=== PATIENT | male | born 1935 | race Caucasian/White ===

== ENCOUNTER → 2023-12-13 10:12 | Outpatient (REF) | payer MEDICARE, SELFPAY ==
[2023-12-13 11:48] LABS: % Eosinophils 3.3 % (0-6); % Immature Granulocytes 0.6 % (0-0.5); % Lymphocytes 21.7 % (20.5-51.1); % Monocytes 10.1 % (1.7-9.3); % Neutrophils 63.3 % (42.2-75.2); Absolute Basophils 0.1 10^3/uL (0-0.2); Absolute Eosinophils 0.3 10^3/uL (0-0.7); Absolute Immature Granulocytes 0.1 10^3/uL (0-0.05); Absolute Lymphocytes 1.7 10^3/uL (1.2-3.4); Absolute Monocytes 0.8 10^3/uL (0.1-0.6); Absolute Neutrophils 4.9 10^3/uL (1.4-6.5); Hematocrit 34.5 % (39.0-52.0); Hemoglobin 11.1 g/dL (13.0-18.0); Mean Corp Hgb Conc. 32.2 g/dL (33.0-37.0); Mean Corpuscular Hgb 27.7 pg (27.0-31.0); Mean Platelet Volume 11.3 fL (7.4-10.4); Nucleated Red Blood Cells % 0 % (-); Platelet Count 195 10^3/uL (130-400); Red Blood Cell Count 4.01 10^6/uL (4.70-6.10); Red Cell Dist. Width 14.4 % (11.5-14.5); White Blood Cell Count 7.8 10^3/uL (4.8-10.8)
[2023-12-13 11:59] LABS: ALT (SGPT) < 10 U/L (0-50); AST (SGOT) 17 U/L (17-59); Albumin 3.7 g/dl (3.5-5.0); Alkaline Phosphatase 80 U/L (38-126); Blood Urea Nitrogen 24 mg/dl (9-20); Calcium 9.5 mg/dl (8.4-10.2); Carbon Dioxide 27 mmol/L (22-30); Chloride 106 mmol/L (98-107); Glucose 91 mg/dl (70-99); Potassium 4.6 mmol/L (3.5-5.1); Sodium 142 mmol/L (135-145); Total Bilirubin 0.7 mg/dl (0.2-1.3); Total Protein 5.9 g/dl (6.3-8.2); eGFR 41.19
== END ==
LOC: OLABPATH 10:12
PROVIDERS: ATTENDING PHYSICIAN Internal Medicine
DX: R53.1 Weakness (principal)
CPT/HCPCS: 36415; 80053; 85025

== ENCOUNTER 2024-04-22 22:34 | Inpatient (IN) | payer OTHER, SELFPAY ==
[2024-04-22 20:31] VITALS: BP 128/61
[2024-04-22 20:45] LABS: % Basophils 0.7 % (0-2); % Eosinophils 2.1 % (0-6); % Immature Granulocytes 0.3 % (0-0.5); % Lymphocytes 17.2 % (20.5-51.1); % Monocytes 10.4 % (1.7-9.3); % Neutrophils 69.3 % (42.2-75.2); Absolute Basophils 0.1 10^3/uL (0-0.2); Absolute Eosinophils 0.2 10^3/uL (0-0.7); Absolute Lymphocytes 1.2 10^3/uL (1.2-3.4); Absolute Monocytes 0.7 10^3/uL (0.1-0.6); Absolute Neutrophils 4.9 10^3/uL (1.4-6.5); Hematocrit 22.4 % (39.0-52.0); Mean Corp Hgb Conc. 31.3 g/dL (33.0-37.0); Mean Corpuscular Hgb 24.1 pg (27.0-31.0); Mean Corpuscular Volume 77.2 fL (80.0-94.0); Mean Platelet Volume 9.4 fL (7.4-10.4); Nucleated Red Blood Cells % 0 % (-); Platelet Count 233 10^3/uL (130-400); Red Cell Dist. Width 16.1 % (11.5-14.5); White Blood Cell Count 7.1 10^3/uL (4.8-10.8)
[2024-04-22 21:00] VITALS: BP 127/66
[2024-04-22 21:09] LABS: Troponin I 0.016 ng/ml
[2024-04-22 21:10] LABS: ALT (SGPT) 13 U/L (0-50); AST (SGOT) 16 U/L (17-59); Albumin 3.7 g/dl (3.5-5.0); Alkaline Phosphatase 79 U/L (38-126); Blood Urea Nitrogen 39 mg/dl (9-20); Calcium 9.1 mg/dl (8.4-10.2); Carbon Dioxide 17 mmol/L (22-30); Chloride 107 mmol/L (98-107); Estimated Creatinine Clearance 31 ml/min; Glucose 116 mg/dl (70-99); Potassium 4.3 mmol/L (3.5-5.1); Sodium 139 mmol/L (135-145); Total Bilirubin 0.4 mg/dl (0.2-1.3); Total Protein 5.7 g/dl (6.3-8.2); eGFR 40.93
--- NOTE | 2024-04-22 21:17 | ED.GENMED ---
History of Present Illness
General
Chief Complaint: Chest Pain
Source: patient and family (son)
Exam Limitations: none
Time Seen by Provider: 04/22/24 21:11
Nursing documentation reviewed up to this point in time: agreed with
History of Present Illness
History of Present Illness:
The patient is an 89-year-old man who reports experiencing mild left-sided chest tightness around 2 PM today. Patient reports it is worse with exertion and better with rest. Currently it is extremely mild and nonradiating. His son is at the
bedside and reports that he also seems to be more short of breath with simple walking. Patient is on Xarelto for atrial fibrillation. Patient does report dark stools. Patient denies abdominal pain.
Past History
Past History
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
ED Past Surgical History: Cardiac (CABG, Mitral valve repair) and Other (Patient has had angioplasty x4, Ventral hernia)
Social History
Tobacco: Smoker
Alcohol: Daily ([place] one daily)
Drug: None
Personal:
Living: fdc
Employment: Retired
Family History
Family History: Hypertension
Review of Systems
Review of Systems
Allergies reviewed?: Yes
Other source history: family
All Other Systems: ROS reviewed and negative except as documented in HPI and ROS
Constitutional: Reports fatigue
EENT: Reports no symptoms
Respiratory: Reports trouble breathing
Cardiac: Reports chest pain
ABD/GI: Reports black stools
: Reports no symptoms
Musculoskeletal: Reports no symptoms
Skin: Reports no symptoms
Neurological: Reports no symptoms
Endocrine: Reports no symptoms
Hematologic/Lymphatic: Reports no symptoms
Psychiatric: Reports no symptoms
Phy Exam
Physical Exam
Physical Exam:
Physical Exam
General: Nontoxic, conversational
Neck: supple. no meningeal signs. normal psoterior pharynx
Heart: Irregular, bradycardic
Lungs: no acute respiratory distress. clear bilaterally
Abdomen: Soft and nontender throughout. Stool is dark on rectal exam and Hemoccult positive
Neuro: alert and oriented. no focal neurological deficits
Skin: no rash
Psychiatric: well kept. interactive and cooperative
Extremities: no edema. no calf tenderness. negative homans. good distal pulses
Scores
Heart Score for Chest Pain Patients
STEMI patient?: Not applicable
Course
Orders/Labs/Results
Orders:
Orders
04/22/24 20:27
Electrocardiogram (*1) Urgent
Reason for Study: Chest Pain
Cardiac Monitoring- Treatment ONCE
EKG- Treatment ONCE
IV Insert/Care/Rem.- Treatment PRN
O2 Therapy [RESP] Urgent
Titrate/Wean O2 to maintain O2 sat greater than (%): 90
Special Instructions: Maintain sats >/=90%
Pulse Ox/spot Check [RESP] Urgent
Quantity: 1
Special Instructions: ON ROOM AIR
04/22/24 20:37
Complete Blood Count/With Diff Urgent
Comprehensive Metabolic Panel Urgent
Troponin I Urgent
04/22/24 21:30
* Blood Bank Products Urgent
'stephanie Orders: [place]
Blood Bank Products: *Packed RBC Leuko(PRBC's)
Quantity: 2
Transfuse Today: Yes
Reason: Anemia
Patient will require pre-treatment for transfusion:: No
Type+Screen Urgent
IV Insert/Care/Rem.- Treatment PRN
04/22/24 21:34
Morphine Sulfate 2 mg IV NOW STA
Abnormal Lab Results
04/22/24
20:37
RBC 2.90 L 10^6/uL
(4.70-6.10)
Hgb 7.0 L g/dL
(13.0-18.0)
Hct 22.4 L %
(39.0-52.0)
MCV 77.2 L fL
(80.0-94.0)
MCH 24.1 L pg
(27.0-31.0)
MCHC 31.3 L g/dL
(33.0-37.0)
RDW 16.1 H %
(11.5-14.5)
Absolute Monos (auto) 0.7 H 10^3/uL
(0.1-0.6)
Lymphocytes % 17.2 L %
(20.5-51.1)
Monocytes % 10.4 H %
(1.7-9.3)
Carbon Dioxide 17 L mmol/L
(22-30)
BUN 39 H mg/dl
(9-20)
Creatinine 1.6 H mg/dL
(0.7-1.3)
Glucose 116 H mg/dl
(70-99)
AST 16 L U/L
(17-59)
Total Protein 5.7 L g/dl
(6.3-8.2)
04/22/24 20:37
04/22/24 20:37
Vital Signs
Initial and Last Documented VS:
Initial Vital Signs
Temp Pulse Resp BP Pulse Ox
98.2 F 67 16 128/61 99
04/22/24 20:31 04/22/24 20:31 04/22/24 20:31 04/22/24 20:31 04/22/24 20:31
Last Documented Vital Signs
Temp Pulse Resp BP Pulse Ox
98.2 F 67 16 128/61 99
04/22/24 20:31 04/22/24 20:31 04/22/24 20:31 04/22/24 20:31 04/22/24 20:31
MDM/Problems Addressed
Differential Diagnosis Includes:
Symptomatic anemia, acute coronary syndrome, acute dehydration
MDM/Problems Addressed:
Patient presents with acute chest pain and shortness of breath
Chronic conditions affecting care: CAD and Arrhythmia
Acute Exacerbation and/or Progression of Chronic Illness:
Patient may have acute exacerbation of chronic coronary artery disease, especially given a setting of acute anemia
Acute Exacerbation and/or Progression of Chronic Illness: CAD
*Pulse Oximetry
Patient hypoxic: no
*EKG
Interpreted by ED Provider?: Yes
Interpretation: abnormal
Comparison EKG: changes noted
Rate: bradycardiac
Rhythm: a-fib
[place]: right axis deviation
Interval: normal interval
QRS Pattern: left bundle branch block
Ischemia: non-specific ST changes
*Obstetrics And Gynecology Professor Interpretation
Rate: bradycardiac
Interpretation: abnormal
Rhythm: a-fib
*Critical Care Note
Total Time (30-74mins, 75-104mins- exclusive of procedures): 35 minutes
comment:
35 minutes of critical care given to patient including counseling patient and his son about importance of blood transfusion and symptomatic anemia, reviewing his prior blood work, and discussing case with hospitalist
Data Reviewed
Review of Other/Old Records Reveals: Labs (Hemoglobin 11.1 in November 2023)
Source: patient
Patient Management
Social determinants of health affecting care: Living situation and Strong social support
Discussion with other providers: Hospitalist
Escalation/DeEscalation of care consider admission/obs:
Patient understands risk and benefits of blood transfusion. Patient will be admitted for chest pain and symptomatic anemia. Concerns for possible upper GI bleed
ED Attending Note
-
Portions of this chart may have been created with voice recognition software.� Occasional wrong word or��sound alike� substitutions may have occurred due to the inherent limitations of voice recognition software.
Discharge Plan
Departure
Patient Disposition: Admit
Date of Disposition: 04/22/24
Time of Disposition: 21:31
Admit to: Med/Surg and Telemetry
Presentation/result/management discussed w/ accepting MD/DO: Hospitalist
Patient with high blood pressure during this ER visit?: Yes
Condition: Fair
Covid-19: Not Applicable
Discharge Problem:
Signs and symptoms of anemia, Acute blood loss anemia, Acute chest pain, Acute upper gastrointestinal bleeding
Prescriptions:
No Action
tamsulosin 0.4 MG capsule
0.4 mg PO BID
atorvastatin 40 MG tablet
40 mg PO QPM
acetaminophen [Tylenol Extra Strength] 500 MG tablet
1,000 mg PO QPM
nystatin [Nyamyc] 60 GM powder
1 applic topical PRN PRN (Reason: skin irritation)
fluticasone propionate 1 SPRAY spray,suspension
1 spray intranasal DAILY
Soothe Lubricant Eye Drops
1 drp BOTH EYES DAILY
polyethylene glycol 3350 17 GRAMS powder in packet
17 grams PO BID 30 Days Qty: 60 0RF
tramadol 50 mg Tablet
50 mg PO Q6H PRN (Reason: mod pain 4-6)
omeprazole 20 mg Capsule,Delayed Release(Dr/Ec)
20 mg PO DAILY
Xarelto 20 mg Tablet
20 mg PO QPM
duloxetine 20 mg Capsule, Delayed Rel Sprinkle
20 mg PO DAILY
diltiazem HCl 240 MG capsule,extended release 24hr
360 mg PO DAILY
cefdinir 300 mg capsule
300 mg PO BID Qty: 14 0RF
lidocaine 4 % adhesive patch,medicated
1 patch topical DAILY PRN (Reason: pain) Qty: 10 0RF
Referrals:
Jose Tavarez DO [Family Provider] -
Interventions
Interventions:
*Risk Screen - Suicide Last Done: 04/22/24 20:31
*General Assessment Last Done: 04/22/24 20:31
*Neglect/Abuse Screening Last Done: 04/22/24 20:31
ED- Cardiac Assessment Last Done: 04/22/24 20:41
Discharge Date and Time
Print Language: SOMALI
[2024-04-22 22:00] VITALS: BP 129/57
--- NOTE | 2024-04-22 22:09 | HPS.HSE ---
Addendum entered and electronically signed by Abel Agosto DO 04/22/24 22:47:
Patient seen and examined independently. Agree with findings and plan as set forth by Sofia Clements PA-C.
Patient is an 89y M with PMH significant for A-Fib, multiple prior TIAs, ASCVD and dementia who presents to ED for evaluation of chest discomfort and SOB. Pateint was at lunch with his son who noted that he seemed to be breathing very heavily.
Patent complained of some SOB this afternoon and was sent to the ED for evaluation. On evaluation in the ED, patient is noted to have Hgb = 7 compared to known baseline of 11-13. Patient denies any obvious blood loss including hematemesis,
epistaxis or hematochezia. He does reports some 'dark' colored stool.
Ass:
Acute Symptomatic Anemia - Presumed due to blood loss
Melena / Heme Positive Stool
Chest Pain / SOB secondary to the above
ASCVD
Paroxysmal Atrial Fibrillation with Multiple Prior TIAs
CKD III
BPH
Senile Dementia
Plan:
Admit for further evaluation and treatment.
Transfuse PRBCs for symptomatic anemia.
Hold Xarelto acutely.
IV PPI BID.
GI evaluation - probable endoscopic examination.
Follow H&H and provide additional PRBCs if needed.
Original Note:
Family Physician
-
Family Physician: Jose Tavarez
Chief Complaint
-
Chest Pain and Shortness of Breath
History of Present Illness
Patient is an 89 y/o male past medical history of A-fib on Xarelto, CAD s/p CABG, CVA and Dementia who presents with chest pain and shortness of breath. Patient is a limited historian. He notes some left sided chest pain that started today. He
also noted some shortness of breath. His son at the bedside took him out to lunch today and noted that he appeared much more short of breath than usual. Work-up in the emergency department revealed a drop in Hgb from 11 in November to 7 today. Patient
is unsure about any dark/black/bloody stools, but was found to have black heme-positive for ED provider.
Medical History
Past Medical History
Past Medical History: Reports Other
Additional Past Medical History:
Coronary Artery Disease
CVA
Paroxysmal Atrial Fibrillation
Essential Hypertension
Hyperlipidemia
CKD Stage III
Dementia
BPH
Past Surgical History: Reports Other
Additional Past Surgical History:
CABG
Mitral Valve Repair
Ventral Hernia Repair
Social History
Tobacco: Former Smoker
Alcohol: Occasional
Living: Assisted Living ([facility])
Family History
Family History: Not pertinent
Allergies / Home Medications
Allergies reflects when Allergies were last updated in [employer].
Home Medications with original date entered in [employer]
Allergy/Medication List:
Allergies
Allergy/AdvReac Type Severity Reaction Status Date / Time
No Known Allergies Allergy Verified 04/22/24 20:27
Home Medications
tamsulosin 0.4 mg capsule 0.4 mg PO BID Urinary issue 06/16/17
atorvastatin 40 mg tablet 40 mg PO QPM High cholesterol 11/12/17
acetaminophen 500 mg tablet (Tylenol Extra Strength) 1,000 mg PO QPM 08/16/19
Soothe Lubricant Eye Drops 1 drp BOTH EYES DAILY Eye condition 04/07/21
fluticasone propionate 50 mcg/actuation nasal spray,suspension 1 spray intranasal DAILY Allergies 04/07/21
nystatin 100,000 unit/gram topical powder (Nyamyc) 1 applic topical PRN PRN skin irritation 04/07/21
diltiazem HCl 240 mg capsule,extended release 24 hr 360 mg PO DAILY 03/01/22
duloxetine 20 mg capsule,delayed release sprinkle 20 mg PO DAILY 03/01/22
omeprazole 20 mg capsule,delayed release 20 mg PO DAILY 03/01/22
rivaroxaban 20 mg tablet (Xarelto) 20 mg PO QPM 03/01/22
Review of Systems
-
A 12 point ROS was completed and negative except as noted: Yes
Constitutional: Denies Fever or Chills
Respiratory: Reports Trouble Breathing; Denies Cough
Cardiac: Reports Chest Pain; Denies Palpitations or Syncope
Physical Exam
Vital Signs
Vital Signs
Temp Pulse Resp BP Pulse Ox
98.2 F 67 16 128/61 99
04/22/24 20:31 04/22/24 20:31 04/22/24 20:31 04/22/24 20:31 04/22/24 20:31
Physical Exam
General: Comfortable and Conversant
HEENT: Anicteric and Moist mucous membranes
Respiratory: Clear and Non Labored Respirations
Cardiac: S1/S2 and Irregular Rhythm; No Tachycardia
GI: Soft and Non Tender
Rectal: Black and Hem Positive (Per ED provider)
Musculoskeletal: No Clubbing, No Cyanosis and No Edema
Skin: Warm and Dry
Neuro: Awake, Alert and Nonfocal/grossly intact
Psych: Calm
Laboratory Results
-
04/22/24 20:37
04/22/24 20:37
Laboratory Results
Total Bilirubin 0.4 mg/dl (0.2-1.3) 04/22/24 20:37
AST 16 U/L (17-59) L 04/22/24 20:37
ALT 13 U/L (0-50) 04/22/24 20:37
Alkaline Phosphatase 79 U/L (38-126) 04/22/24 20:37
Troponin I 0.016 ng/ml 04/22/24 20:37
Data Reviewed
-
Lab Data: Labs Reviewed by me
Impression/Plan
-
Symptomatic Blood Loss Anemia
-Transfuse 2 units PRBCs
-Recheck in AM following transfusion
-Check iron studies
GI Bleed, likely upper in nature
-Consult GI
-Allow clear liquids
-Continue Protonix IV BID
Paroxysmal Atrial Fibrillation
-Continue diltiazem
-Xarelto on hold in setting of symptomatic anemia - Consider bridge therapy given history of multiple TIAs/CVA
-Consult Cardiology
CKD Stage III
-Creatinine at baseline
Dementia
-Monitor for mood/behavior changes during hospitalization
BPH
-Continue tamsulosin
Hx Coronary Artery Disease s/p CABG
Hx CVA
DVT Proph: SCDs
Code Status: DNR
[2024-04-22 22:41] LABS: Iron 27 ug/dl (49-181)
[2024-04-22 22:50] LABS: Percent Saturation 8 % (20-50); Total Iron Binding Capacity 326 ug/dl (261-462)
[2024-04-22 23:00] VITALS: BP 131/58
[2024-04-22 23:26] LABS: Ferritin 9.4 ng/ml (17.9-464.0)
[2024-04-22 23:54] VITALS: BP 122/67
[2024-04-22 23:58] LABS: Folate > 20.0 ng/ml (2.76-20); Vitamin B12 604 pg/ml (239-931)
[2024-04-23] VITALS (9 sets, daily range): BP systolic 118–168; BP diastolic 66–84; BMI 22.3
--- NOTE | 2024-04-23 00:33 | PTCARENOTE ---
Patient arrived from the ED via stretcher at approximately 0000. Patient stood and pivoted from stretcher to bed x1 assist. Patient AAOx2, [place]. VSS as documented. Assessment as documented. Patient oriented to room. Bed in lowest position. Bed alarm
in place for patient safety. Call aiken within reach.
[2024-04-23] MEDS: LASIX 20 MG IV (04:04)
[2024-04-23] MEDS: DUONEB 3 ML INH (04:06)
--- NOTE | 2024-04-23 04:32 | PTCARENOTE ---
After patient's first unit of PRBCs, patient's POX 87-91% on room air. Patient reports his shortness of breath has remained the same since admission. Patient placed on 2L NC and POX recovered to 94-97%. SWEATBAND PERFORATOR notified. Respiratory notified. One time
dose of IV Lasix ordered and given - see MAR. [place] given. Per SWEATBAND PERFORATOR, okay to give 2nd unit of PRBCs at a slow rate over 4 hours.
--- NOTE | 2024-04-23 06:55 | CON.GI ---
Addendum entered and electronically signed by Ritesh Mg DO 04/23/24 11:40:
I saw and examined the patient.
The WOOD PATTERN MAKER's note was reviewed and I agree with the note.
Comment: Mr. Oliva is an 89 y.o male with extensive past medical history as detailed below notable for prior MVR, hx of CAD s/p CABG, multiple TIAs, CKD, adenomatous colon polyps, and chronic dementia who presented to the ED with symptomatic anemia
found to have Hgb 7 and dark heme (+) stool. Concern for occult GI bleed resulting in his presentation and significant drop in Hgb from 13 (11/2023) now 7s here on admission without any overt GI blood loss. History significant for colon polyps (both
adenomatous and benign) during his previous colonoscopies, no prior EGD. Suspicious for AVMs resulting in occult GI blood loss, although malignancy cannot be excluded. Favor bi-directional endoscopic evaluation particularly if patient is to be
restarted on his xarelto given his known A Fib and multiple prior TIAs. Otherwise, patient remains HD-stable s/p 2 uPRBCs without signs of active GI bleeding although still significantly SOB at bedside this AM.
Recommendations:
- CLD only
- Trend Hgb with serial CBC, transfuse for goal Hgb > 8.0 given his cardiac history
- Empiric PPI 40 mg BiD
- Okay to start IV heparin gtt from GI standpoint while holding xarelto as without overt GI blood loss
- Discussed with patient's son at length this AM, amenable to pursuing EGD/Colonoscopy this admission
- Once patient is medically optimized from both a cardiopulmonary standpoint, will start bowel prep this admission
- Plan for EGD/Colonoscopy later this week ( or Monday)
- Cardiology consulted, appreciate recs
GI team will continue to follow while inpatient.
Original Note:
Consultation
-
Date/Time Consultation Requested: 04/22/24 [id number]
Date/Time Consultation Performed: 04/23/24 [id number]
Requesting Provider: Sofia Clements PA-C
Performing Provider: ARIANA Welch Bryan Stone
Reason for Consultation: anemia
Medical History
Chief Complaint / HPI
Chief Complaint: shortness of breath
History of Present Illness:
Pt is an 89yo with hx afib on Xarelto, prior adenomatous polyps, MVR, prior CABG, dementia, ASCVD, multiple TIA's, CKD, GERD on chronic PPI, BPH with chest pain and shortness of breath. On arrival he was noted with hbg 7 with dark stool and
baseline hbg 11-13 over last 2 years. Pt did have prior anemia in 2020 but was noted with abdominal hematoma s/p hernia repair. ER rectal with black heme + stools and iron studies c/w iron deficiency.
In reviewing with son patient lives at [facility] with hx dementia but was able to get out for dinner with family. He was noted yesterday with some increased shortness of breath and chest pain. Per family no reported GI issue with
dysphagia, GERD, nausea, vomiting, abdominal pain, diarrhea, constipation, wt loss or prior bleeding. No hx EGD in past but hx several colonoscopies in past with 2004 noted benign and adenomatous polyps, diverticulosis and erosion in hepatic
flexure and most recent colonoscopy in 2006 diverticulosis, hemorrhoids with neg bx for colitis. No NSAID noted on admission meds .
Past Medical History
Past Medical History: Arrhythmias (afib on Xarelto), CVA (multiple TIA's), GERD, Renal Failure (CKD III), Psychiatric (dementia ) and Other (ASCVD, BPH, colon polyps)
Past Surgical History: Cardiac (mitral valve repair, CABG) and Other (ventral hernia repair)
Social History
Tobacco: Former Smoker
Alcohol: Daily ([place] with hx social ETOH in past )
Drug: Marijuana (in past with pain issues )
Living: Assisted Living
Employment: Retired
Family History
Family History: Reviewed & Not Pertinent
Allergies / Home Medications
Allergy/AdvReac Type Severity Reaction Status Date / Time
No Known Allergies Allergy Verified 04/22/24 20:27
�Medication �Instructions �Recorded
tamsulosin 0.4 mg capsule 0.4 mg PO BID Urinary issue 06/16/17
atorvastatin 40 mg tablet 40 mg PO QPM High cholesterol 11/12/17
acetaminophen 500 mg tablet 1,000 mg PO QPM 08/16/19
(Tylenol Extra Strength)
Soothe Lubricant Eye Drops 1 drp BOTH EYES DAILY Eye condition 04/07/21
fluticasone propionate 50 1 spray intranasal DAILY Allergies 04/07/21
mcg/actuation nasal
spray,suspension
nystatin 100,000 unit/gram topical 1 applic topical PRN PRN skin 04/07/21
powder (Nyamyc) irritation
diltiazem HCl 240 mg 360 mg PO DAILY 03/01/22
capsule,extended release 24 hr
duloxetine 20 mg capsule,delayed 20 mg PO DAILY 03/01/22
release sprinkle
omeprazole 20 mg capsule,delayed 20 mg PO DAILY 03/01/22
release
rivaroxaban 20 mg tablet (Xarelto) 20 mg PO QPM 03/01/22
Review of Systems
-
Unable to obtain full review of systems at this time due to: Dementia
History Source: Patient and Family
Constitutional: Reports No Symptoms
EENT: Reports No Symptoms
Respiratory: Reports Trouble Breathing
Cardiac: Reports Chest Pain
Abdomen/GI: Reports Black Stools
: Reports No Symptoms
Musculoskeletal: Reports No Symptoms
Skin: Reports No Symptoms
Neurological: Reports Weakness
Endocrine: Reports No Symptoms
Hematologic/Lymphatic: Reports Bleeding
Vital Signs
Temp Pulse Resp BP Pulse Ox
98.1 F 89 18 122/77 94
04/23/24 05:14 04/23/24 05:14 04/23/24 05:14 04/23/24 05:14 04/23/24 05:14
Physical Exam
Exam
General: Well Developed, Well Nourished and No Apparent Distress
HEENT: Normocephalic and Anicteric
Respiratory: Other (slight dyspnea at rest )
Cardiac: Other (tachy)
GI: Soft, Non Tender and Non Distended
Rectal: Other (per ER dark heme + stool)
Musculoskeletal: No Clubbing and No Cyanosis
Skin: Warm and Dry
Neuro: Awake, Alert and Other (forgetful)
Psych: Calm
Results
WBC 7.1 10^3/uL (4.8-10.8) 04/22/24 20:37
Hgb 7.0 g/dL (13.0-18.0) L 04/22/24 20:37
Hct 22.4 % (39.0-52.0) L 04/22/24 20:37
MCV 77.2 fL (80.0-94.0) L 04/22/24 20:37
Plt Count 233 10^3/uL (130-400) 04/22/24 20:37
Absolute Neuts (auto) 4.9 10^3/uL (1.4-6.5) 04/22/24 20:37
Sodium 139 mmol/L (135-145) 04/22/24 20:37
Potassium 4.3 mmol/L (3.5-5.1) 04/22/24 20:37
Chloride 107 mmol/L (98-107) 04/22/24 20:37
Carbon Dioxide 17 mmol/L (22-30) L 04/22/24 20:37
BUN 39 mg/dl (9-20) H 04/22/24 20:37
Creatinine 1.6 mg/dL (0.7-1.3) H 04/22/24 20:37
Calcium 9.1 mg/dl (8.4-10.2) 04/22/24 20:37
Total Bilirubin 0.4 mg/dl (0.2-1.3) 04/22/24 20:37
AST 16 U/L (17-59) L 04/22/24 20:37
ALT 13 U/L (0-50) 04/22/24 20:37
Alkaline Phosphatase 79 U/L (38-126) 04/22/24 20:37
Diagnostic Image Results:
Prior GI Procedures:
EGD:
Colonoscopy: [place] 2004 noted benign and adenomatous polyps, diverticulosis and erosion in hepatic flexure
colonoscopy: [place] 2006 diverticulosis, hemorrhoids with neg bx for colitis.
Assessment / Plan
-
Pt is an 89yo with hx afib on Xarelto, prior adenomatous polyps, MVR, prior CABG, dementia, ASCVD, multiple TIA's, CKD, GERD on chronic PPI, BPH with chest pain and shortness of breath. On arrival he was noted with hbg 7 with dark stool and
baseline hbg 11-13 over last 2 years. Pt did have prior anemia in 2020 but was noted with abdominal hematoma s/p hernia repair. ER rectal with black heme + stools and iron studies c/w iron deficiency.
-symptomatic iron deficiency anemia
-black heme + stool
-chest pain on admission with minimal increased troponin
other med problems:
-Afib on Xarelto
- hx adenomatous colon polyps
-hx anemia after hernia repair with hematoma
-GERD
-MVR
-hx CABG
-dementia
-ASCVD
-TIA's
-CKD
-BPH
PLAN:
etiology of anemia related to upper vs lower GI source- PUD, ectasia, mass vs other
agree with transfusion
pt still appears with some shortness of breath and dyspnea on exam with tachycardia-- will need medical optimization prior to proceeding
cont clear diet
reviewed with son -- would prefer work up during admission and would be agreeable to procedures-
cont Xarelto hold (last dose 04/22)
NSAID avoidance
cont PPI BID
-
-
Thank you for consultation and allowing me to participate in the patient's care. Please call the condenser cleaner GI physician during the after hours with any questions or concerns.
[2024-04-23 08:00] LABS: Hematocrit 25.9 % (39.0-52.0); Hemoglobin 8.2 g/dL (13.0-18.0); Mean Corp Hgb Conc. 31.7 g/dL (33.0-37.0); Mean Corpuscular Hgb 24.8 pg (27.0-31.0); Mean Corpuscular Volume 78.5 fL (80.0-94.0); Mean Platelet Volume 9.7 fL (7.4-10.4); Platelet Count 228 10^3/uL (130-400); Red Cell Dist. Width 15.9 % (11.5-14.5); White Blood Cell Count 7.7 10^3/uL (4.8-10.8)
[2024-04-23] MEDS: CYMBALTA DELAYED RELEASE 20 MG PO (08:10)
[2024-04-23] MEDS: CARDIZEM CD 360 MG PO (08:10)
[2024-04-23] MEDS: FLOMAX 0.4 MG PO ×2 (08:10→20:17)
[2024-04-23] MEDS: PROTONIX IV 40 MG IV ×3 (08:11→20:17)
[2024-04-23] MEDS: NSS (PRESERVATIVE FREE) 10 ML IV ×3 (08:11→20:17)
[2024-04-23 08:53] LABS: Blood Urea Nitrogen 36 mg/dl (9-20); Calcium 8.8 mg/dl (8.4-10.2); Carbon Dioxide 18 mmol/L (22-30); Chloride 107 mmol/L (98-107); Estimated Creatinine Clearance 30 ml/min; Glucose 108 mg/dl (70-99); Potassium 3.9 mmol/L (3.5-5.1); Sodium 142 mmol/L (135-145); eGFR 40.93
--- NOTE | 2024-04-23 09:07 | CON.CAR ---
Addendum entered and electronically signed by Cuco Sherman MD 04/23/24 17:56:
Echo ejection fraction of 25%. Pleural effusion noted. Chest x-ray with possible pleural effusion. Will give 40 mg IV Lasix now.
Addendum entered and electronically signed by Cuco Sherman MD 04/23/24 11:34:
I personally performed a history and physical exam of the patient and discussed management with the resident. I reviewed the resident's note and agree with the documented findings and plan of care HPI/CC.
Comment: General: Well developed, well nourished in NAD.
Neck: Supple, no JVD, HJR, carotids +2 B/L, no bruits bilaterally.
Heart: Non displaced PMI, Irreg, no murmurs, No S3, S4, no rubs.
Lungs: Clear to auscultation bilaterally, no wheeze, rhonchi, rubs bilaterally,
normal expiratory phase.
Abdomen: Normal bowel sounds, soft, non-tender, non-distended.
Extremities: No clubbing, cyanosis or edema bilaterally.
Neuro: Grossly nonfocal, awake, alert and oriented x3.
Anival has a history of permanent A-fib on chronic Xarelto, stage III renal sufficiency, status post mitral valve repair, dementia, CABG, cardioembolic strokes in 2010 2016. He presented with shortness of breath and weakness as well as chest pressure.
He is found to have a hemoglobin of 7.0. GI has been consulted. Cardiology is consulted for possible bridging given prior cardiac embolic strokes.
Of note patient had a stroke in 2010 on therapeutic Coumadin. He was on Pradaxa and had a stroke in 2017 and eventually was changed to Xarelto.
GI felt he was not medically stable for procedures at present. Will workup shortness of breath. Will give DuoNeb. Will check chest x-ray. Will check proBNP. Will check echocardiogram. Troponins have been negative.
Will bridge with IV heparin for now and hopefully GI procedures could be done while he is heparinized. Will need to follow hemoglobin on IV heparin as well
Addendum entered and electronically signed by Cuco Sherman MD 04/23/24 11:31:
I saw and examined the patient.
The [employer] or PA's note was reviewed and I agree with the note.
Comment: General: Well developed, well nourished in NAD.
Neck: Supple, no JVD, HJR, carotids +2 B/L, no bruits bilaterally.
Heart: Non displaced PMI, Irreg, no murmurs, No S3, S4, no rubs.
Lungs: Clear to auscultation bilaterally, no wheeze, rhonchi, rubs bilaterally,
normal expiratory phase.
Abdomen: Normal bowel sounds, soft, non-tender, non-distended.
Extremities: No clubbing, cyanosis or edema bilaterally.
Neuro: Grossly nonfocal, awake, alert and oriented x3.
Anival has a history of permanent A-fib on chronic Xarelto, stage III renal sufficiency, status post mitral valve repair, dementia, CABG, cardioembolic strokes in 2010 2016. He presented with shortness of breath and weakness as well as chest pressure.
He is found to have a hemoglobin of 7.0. GI has been consulted. Cardiology is consulted for possible bridging given prior cardiac embolic strokes.
Of note patient had a stroke in 2010 on therapeutic Coumadin. He was on Pradaxa and had a stroke in 2016 and eventually was changed to Xarelto.
GI felt he was not medically stable for procedures at present. Will workup shortness of breath. Will give DuoNeb. Will check chest x-ray. Will check proBNP. Will check echocardiogram. Troponins have been negative.
Will bridge with IV heparin for now and hopefully GI procedures could be done while he is heparinized. Will need to follow hemoglobin on IV heparin as well
Original Note:
Medical History
-
Chief Complaint: Symptomatic anemia
History of Present Illness:
Cuco is an 89-year-old male with past medical history of persistent A-fib on Xarelto CKD stage III, s/p mitral valve repair, dementia, CABG, and several cardioembolic strokes (2010 and 2016) who presented to ED with complaints of SOB and
weakness. Patient was at lunch with son who noted he was breathing heavily and brought him to ED for evaluation. Patient lives at [facility] but occasionally goes out with family for lunch or dinner. While in the ED, his hemoglobin
was 7 (baseline 11�13) and he was given a unit of PRBC with improvement of hemoglobin to 8.2. He was also found to have heme positive stool but no overt hematochezia. He was admitted for further evaluation and management.
At the time of consultation, patient was seen by himself in the room sitting comfortably on the bed. He complains of 3 months SOB with cough. He denies chest pain at this time and states that he is short of breath with activities and would not be
able to lie flat. He does not remember if he had black stools at the facility where he lives but does endorse significant SOB with ambulation. He denies abdominal pain, nausea, vomiting, and diarrhea. He states that his back pain is stable and he
does not take any chronic NSAIDs.
Past Medical History
Past Medical History: Arrhythmias (A-fib on Xarelto), CAD (Multiple PTCA's), CVA (2010, 2016), GERD, HTN, Renal Failure (CKD stage III), Psychiatric (Dementia) and Other (BPH, history of colon polyps, aortic insufficiency, mitral regurgitation,
malignant melanoma, C. difficile colitis, diverticulosis, gout)
Past Surgical History: Cardiac (CABG x 3, mitral valve repair) and Other (Herniorrhaphy 12/31/2010, in the ER surgery)
Social History
Tobacco: Former Smoker
Alcohol: Daily
Living: Assisted Living
Employment: Retired
Family History
Family History: Reviewed & Not Pertinent
Allergies / Home Medications
Allergy/AdvReac Type Severity Reaction Status Date / Time
No Known Allergies Allergy Verified 04/22/24 20:27
�Medication �Instructions �Recorded �Confirmed �Type
tamsulosin 0.4 mg capsule 0.4 mg PO BID Urinary issue 06/16/17 04/22/24 History
atorvastatin 40 mg tablet 40 mg PO QPM High cholesterol 11/12/17 04/22/24 History
acetaminophen 500 mg tablet 1,000 mg PO QPM 08/16/19 04/22/24 History
(Tylenol Extra Strength)
Soothe Lubricant Eye Drops 1 drp BOTH EYES DAILY Eye condition 04/07/21 04/22/24 History
fluticasone propionate 50 1 spray intranasal DAILY Allergies 04/07/21 04/22/24 History
mcg/actuation nasal
spray,suspension
nystatin 100,000 unit/gram topical 1 applic topical PRN PRN skin 04/07/21 04/22/24 History
powder ([facility]) irritation
diltiazem HCl 240 mg 360 mg PO DAILY 03/01/22 04/22/24 History
capsule,extended release 24 hr
duloxetine 20 mg capsule,delayed 20 mg PO DAILY 03/01/22 04/22/24 History
release sprinkle
omeprazole 20 mg capsule,delayed 20 mg PO DAILY 03/01/22 04/22/24 History
release
rivaroxaban 20 mg tablet (Xarelto) 20 mg PO QPM 03/01/22 04/22/24 History
Review of Systems
-
History Source: Patient
Constitutional: No Symptoms
EENT: No Symptoms
Respiratory: Cough, Trouble Breathing and Other (Bilateral end expiratory wheezing)
Cardiac: No Symptoms
Abdomen/GI: No Symptoms
Physical Exam
Vital Signs
Home Medications
�Medication �Instructions �Recorded
tamsulosin 0.4 mg capsule 0.4 mg PO BID Urinary issue 06/16/17
atorvastatin 40 mg tablet 40 mg PO QPM High cholesterol 11/12/17
acetaminophen 500 mg tablet 1,000 mg PO QPM 08/16/19
(Tylenol Extra Strength)
Soothe Lubricant Eye Drops 1 drp BOTH EYES DAILY Eye condition 04/07/21
fluticasone propionate 50 1 spray intranasal DAILY Allergies 04/07/21
mcg/actuation nasal
spray,suspension
nystatin 100,000 unit/gram topical 1 applic topical PRN PRN skin 04/07/21
powder (Nyamyc) irritation
diltiazem HCl 240 mg 360 mg PO DAILY 03/01/22
capsule,extended release 24 hr
duloxetine 20 mg capsule,delayed 20 mg PO DAILY 03/01/22
release sprinkle
omeprazole 20 mg capsule,delayed 20 mg PO DAILY 03/01/22
release
rivaroxaban 20 mg tablet (Xarelto) 20 mg PO QPM 03/01/22
Temp Pulse Resp BP Pulse Ox
98.0 F 103 16 168/84 97
04/23/24 08:05 04/23/24 08:05 04/23/24 08:05 04/23/24 08:05 04/23/24 07:10
Lab Results
04/23/24 06:53
04/23/24 06:53
Troponin I 0.016 ng/ml 04/22/24 20:37
Physical Exam
General: No Apparent Distress and Comfortable; Negative Respiratory Distress, Fever or Chills
Respiratory: Wheezes (Bilateral end expiratory wheezing) and Non Labored Respirations; Negative Crackles
Cardiac: S1/S2 and Irregular Rhythm; Negative Calf Tenderness or JVD
GI: Soft, Non Tender, Non Distended and Normal Bowel Sounds
Genito-urinary: Other (Enlarged scrotum)
Neuro: Awake, Alert and AO x 3
Psych: Calm
Impression / Plan
-
Assessment: This is an 89-year-old male with past medical history of permanent A-fib on Xarelto, prior CABG, CKD stage III, GERD on chronic PPI who presented to ED with left-sided chest tightness, SOB, and weakness. Patient was noted to have a
Hb of 7.0 while in the ED and subsequently received 1 units of PRBC. Cardiology was consulted for possible bridging from Xarelto due to history of multiple strokes. Patient notes that he has been SOB, cough and wheezing for about 3 months, does
not use inhaler and does not remember his medications.
Impression:
Permanent A-fib (on Xarelto)
Iron deficiency anemia
Presentation with chest tightness and SOB
CKD stage III
History of CABG
MVR
Plan:
Permanent A-fib (on Xarelto)
-Xarelto currently on hold given patient's iron deficiency anemia.
-Patient has multiple cardioembolic strokes in the past (2010 on Coumadin with therapeutic INR, 2017 while on renally dosed Pradaxa).
-Patient would benefit from heparin bridging from the standpoint. last dose of xarelto 04/22
-PT/INR
Presentation with chest tightness and SOB
-Chest tightness resolved per patient. Bilateral and expiratory wheezing on auscultation.
-SOB likely from untreated chronic wheezing and chest congestion.
-Minimal troponin 0.016�no evidence of myocardial injury.
-CXR
-Nebulizer treatment.
CKD stage III
History of CABG
MVR
Data Reviewed
-
EKG: Tracing Personally Visualized and interpreted, Report Reviewed by me and Discussed with Physician
Labs: Labs Reviewed by me and Discussed with Physician
Old Records: Reviewed
[2024-04-23 11:28] LABS: INR 2.07; PT 23.1 Sec (11.4-14.6)
[2024-04-23 11:31] LABS: APTT 34.9 Sec (23.4-35.0)
[2024-04-23] MEDS: HEPARIN 4000 UNITS IV (11:56)
[2024-04-23] MEDS: HEPARIN 25000 UNITS/250 ML IV (11:56)
--- NOTE | 2024-04-23 13:19 | W.PN.HOSP.TC ---
Today's Communication/Plan
-
Hep ggt
monitor cbc
CXR, probnp, echo
PPI IV BID
okay for clears
Assessment / Plan
Assessment / Plan
General: Well developed, well nourished in NAD.
Neck: Supple, no JVD, HJR, carotids +2 B/L, no bruits bilaterally.
Heart: Non displaced PMI, Irreg, no murmurs, No S3, S4, no rubs.
Lungs: Clear to auscultation bilaterally, no wheeze, rhonchi, rubs bilaterally,
normal expiratory phase.
Abdomen: Normal bowel sounds, soft, non-tender, non-distended.
Extremities: No clubbing, cyanosis or edema bilaterally.
Neuro: Grossly nonfocal, awake, alert and oriented x3.
Symptomatic Blood Loss Anemia
Iron Deficiency anemia
-OK for CLD for now
-Transfuse 2 units PRBCs
-monitor cbc
-PPI IV BID
-Empiric IV hep ok at this juncture with recurrent embolic strokes
-Anticipate EGD/C-Scope /Monday
-Cardiac clearance
Shortness of breath
-appears resolved - most likely symptomatic anemia
-CXR
-Duonebs prn ok
-proBNP f/u
-ECHO
-trops negative
Paroxysmal Atrial Fibrillation
-Continue diltiazem
-Xarelto on hold in setting of symptomatic anemia - Consider bridge therapy given history of multiple TIAs/CVA - started on hep ggt
-Consult Cardiology
CKD Stage III
-Creatinine at baseline
Dementia
-Monitor for mood/behavior changes during hospitalization
BPH
-Continue tamsulosin
Hx Coronary Artery Disease s/p CABG
Hx CVA
DVT Proph: Hep ggt
Code Status: DNR
Total time spent on today's encounter was 50 minutes which included time spent in counseling the patient/family regarding diagnosis and treatment plan as listed above, goals of care, and symptom management. Case was discussed with nursing staff,
specialists, and care coordinators/case management. All labs and imaging personally reviewed by me. Remainder the time spent in detailed review of previous records, lab data, imaging, and other medical provider documentation.
Anticipated Discharge: > 48 hours
Subjective/Interval History
-
Date of Service: April 23, 2024
No acute events overnight
Objective Data
-
Labs:
Laboratory Results
04/23/24 04/23/24 04/23/24
06:53 11:05 11:19
WBC 7.7 Cancelled
Hgb 8.2 L Cancelled
Hct 25.9 L Cancelled
Plt Count 228 Cancelled
PT 23.1 H
INR 2.07
APTT 34.9 Cancelled
Sodium 142
Potassium 3.9
Chloride 107
Carbon Dioxide 18 L
BUN 36 H
Creatinine 1.6 H
Glucose 108 H
Calcium 8.8
04/23/24
18:00
WBC
Hgb
Hct
Plt Count
PT
INR
APTT Pending
Sodium
Potassium
Chloride
Carbon Dioxide
BUN
Creatinine
Glucose
Calcium
Vital Signs:
Vital Signs
Temp Pulse Resp BP Pulse Ox
98.0 F 103 16 168/84 97
04/23/24 08:05 04/23/24 08:05 04/23/24 08:05 04/23/24 08:05 04/23/24 08:34
I&O
04/22/24 04/23/24 04/24/24
06:59 06:59 06:59
Intake Total 251 / 251 700 / 700
Output Total 575 / 575 250 / 250
Balance -324 / -324 450 / 450
Review of Systems
-
History Source: Patient
All other systems: Not reviewed unless documented
Data Reviewed
-
Labs: Labs Reviewed by me
--- NOTE | 2024-04-23 14:28 | CM ---
Patient seen at bedside - on medsitter.
IA completed.
Spoke with catrachito Abel [phone] - patient lives at [facility] memory care in [place].
Spoke with Svetlana at facility and updated.
[facility] home health in the past.
PLOF: Independent with jeff elias
Await PT eval
PCP: Jose Tavarez
Pharmacy: [facility]
PLAN: Await PT recommendation - ? [facility] with home health
[2024-04-23 15:29] LABS: NT-proBNP 2330 pg/ml
--- NOTE | 2024-04-23 15:44 | PN.CDI ---
CDI
- -
CDI:
Physician Documentation Request
Admit Date: 04/22/24 22:34
Dear Doctor Baldo,
Clinical Indicators:
Patient admitted with Symptomatic Blood Loss Anemia.
04/23 Cardiology consult, 'Permanent A-fib (on Xarelto)'
04/23 PN, 'Paroxysmal Atrial Fibrillation'
04/22 EKG: Atrial Fibrillation with slow ventricular response
Due to potentially conflicting documentation, please clarify the type of atrial fibrillation:
Permanent atrial fibrillation - when a decision has been made to accept the presence of AF and there is no further attempt to restore or maintain sinus rhythm
Paroxysmal atrial fibrillation (documentation complete) - terminates spontaneously or with intervention within 7 days of onset
Other - please specify
Use of terms such as suspected, likely, concern for, or probable (associated with a specific diagnosis that is being evaluated, monitored, or treated as if it exists) are acceptable and can be coded in the inpatient setting, when documented at the
time of discharge.
Thank you,
Merary Phillips RN BSN
CDI Specialist
available via tiger text
Please use your independent medical judgment in providing your response.
--- NOTE | 2024-04-23 15:56 | CARDSERVLU ---
Echocardiogram with Lumason completed after protocol screening completed. Allergies verified.
Patent IV site: left arm 22 G PC site clear
IV site flushed with 0.9% NaCl pre and post administration.
Diluted bolus method utilized to enhance visualization of ventricular burkett.
Total volume given: __4__ mL
Patient tolerated all procedures well without complications.
[2024-04-23] MEDS: LIPITOR 40 MG PO (17:34)
[2024-04-23] MEDS: LASIX 40 MG IV (18:16)
[2024-04-23 18:36] LABS: APTT 64.3 Sec (23.4-35.0)
[2024-04-24 02:24] LABS: APTT 56.6 Sec (23.4-35.0)
[2024-04-24 05:38] VITALS: BMI 21.2
--- NOTE | 2024-04-24 05:57 | W.PN.GI.CBS2 ---
Today's Communication / Plan
-
No signs of overt GI bleeding, now s/p 2 uPRBCs. Reviewed recent TTE findings, appreciate any further recommendations from Cardiology. Once optimized, will start prep with plans for EGD/Colon later this week. See complete recommendations as below.
Assessment / Plan
-
#Occult GI Bleed
#Heme (+) Stools
#Symptomatic Anemia #Iron Deficiency Anemia
#Hx of Adenomatous Colon Polyps
#Hx of CABG #HFrEF
#Hx of Cardioembolic TIAs
Mr. Oliva is an 89 y.o male with extensive past medical history as detailed below notable for prior MVR, hx of CAD s/p CABG, multiple TIAs, CKD, adenomatous colon polyps, and chronic dementia who presented to the ED with symptomatic anemia found to
have Hgb 7 and dark heme (+) stool. Concern for occult GI bleed resulting in his presentation and significant drop in Hgb from 13 (11/2023) now 7s here on admission without any overt GI blood loss. History significant for colon polyps (both
adenomatous and benign) during his previous colonoscopies, no prior EGD. Suspicious for AVMs resulting in occult GI blood loss, although malignancy cannot be excluded. Favor bi-directional endoscopic evaluation particularly if patient is to be
restarted on his xarelto given his known A Fib and multiple prior TIAs. Otherwise, patient remains HD-stable s/p 2 uPRBCs without signs of active GI bleeding.
Recommendations:
- Continue CLD today
- Trend Hgb with serial CBC, transfuse for goal Hgb > 8.0
- IV iron while inpatient, treat for 5 days given iron sat 8%
- Empiric IV PPI 40 mg BiD
- Started on IV Heparin gtt, prefer heparin to be held 4 hrs prior to procedures if biopsies and/or therapy were to be performed
- Continue to hold Xarelto (last dose 04/22)
- Will start prep once patient has been optimized from a cardiopulmonary standpoint especially in light of recent TTE findings with EF 25% and pleural effusion
- Cardiology consulted, appreciate recommendations
- No signs of overt GI bleeding, notify GI if c/f melena or other concern if sooner endoscopy were to be indicated
- Rest of care per primary team
GI team will continue to follow.
Subjective
Subjective
Date of Service: April 24, 2024
- CXR 04/23: left basilar opacification, likely atelectasis (vs pneumonia) and small L pleural effusion
- TTE 04/23: Compared to prior TTE 03/2021, EF decreased from 50 to 25%, hypokinetic and dilated RV, stage III diastolic function and moderate pulmonary HTN with PASP 52
- S/p 2 uPRBCs for Hgb 7.0 -> 8.2, pending AM CBC
- Otherwise, no signs of GI bleeding since admission
Resting comfortably without any recent bloody stools. Has not yet had a BM since admission. Denies any abdominal pain, nausea or vomiting. Much less SOB this AM, denies any chest pain.
Objective
Data Reviewed
Laboratory Data:
Laboratory Results
PT 23.1 Sec (11.4-14.6) H 04/23/24 11:05
INR 2.07 04/23/24 11:05
APTT 56.6 Sec (23.4-35.0) H 04/24/24 01:41
Total Bilirubin 0.4 mg/dl (0.2-1.3) 04/22/24 20:37
AST 16 U/L (17-59) L 04/22/24 20:37
ALT 13 U/L (0-50) 04/22/24 20:37
Alkaline Phosphatase 79 U/L (38-126) 04/22/24 20:37
Vital Signs and I&O:
Vital Signs
Temp Pulse Resp BP Pulse Ox
98.0 F 93 16 123/68 98
04/23/24 23:40 04/23/24 23:40 04/23/24 23:40 04/23/24 23:40 04/24/24 00:40
I&O
04/22/24 04/23/24 04/24/24
06:59 06:59 06:59
Intake Total 251 / 251 820 / 820
Output Total 575 / 575 1000 / 1000
Balance -324 / -324 -180 / -180
Physical Exam
Physical Exam
HEENT: Anicteric and Moist mucous membranes
Cardiology: Normal Sinus Rhythm
Pulmonary: Other (Normal WOB on room air)
GI: Soft, Non Distended, Flat and Non Tender
Extremities: No Edema and Warm
Neuro: Non Focal
[2024-04-24 07:30] VITALS: BP 136/71
[2024-04-24] MEDS: CYMBALTA DELAYED RELEASE 20 MG PO (08:16)
[2024-04-24] MEDS: FLOMAX 0.4 MG PO ×2 (08:16→19:58)
[2024-04-24] MEDS: TYLENOL 650 MG PO ×2 (08:16→19:58)
[2024-04-24] MEDS: CARDIZEM CD 360 MG PO (08:16)
[2024-04-24] MEDS: NSS (PRESERVATIVE FREE) 10 ML IV ×2 (08:16→19:59)
[2024-04-24] MEDS: PROTONIX IV 40 MG IV ×2 (08:17→19:59)
[2024-04-24 08:18] LABS: Hematocrit 27.6 % (39.0-52.0); Mean Corp Hgb Conc. 32.6 g/dL (33.0-37.0); Mean Corpuscular Hgb 25.9 pg (27.0-31.0); Mean Corpuscular Volume 79.5 fL (80.0-94.0); Mean Platelet Volume 10.4 fL (7.4-10.4); Platelet Count 239 10^3/uL (130-400); Red Blood Cell Count 3.47 10^6/uL (4.70-6.10); Red Cell Dist. Width 15.9 % (11.5-14.5); White Blood Cell Count 7.3 10^3/uL (4.8-10.8)
[2024-04-24 08:20] LABS: INR 1.35; PT 16.8 Sec (11.4-14.6)
[2024-04-24 08:21] LABS: APTT 63.6 Sec (23.4-35.0)
--- NOTE | 2024-04-24 08:52 | W.PN.CARDCBS ---
Addendum entered and electronically signed by Cuco Sherman MD 04/24/24 15:04:
Patient is okay for AV fistula surgery without further testing.
Addendum entered and electronically signed by Cuco Sherman MD 04/24/24 12:20:
I saw and evaluated the patient. I reviewed the resident�s note and agree with findings and plan as documented in the resident�s note.
General: Sedate but arousable
Neck: Supple, no JVD, HJR, carotids +2 B/L, no bruits bilaterally.
Heart: Non displaced PMI, RRR, no murmurs, No S3, S4, no rubs.
Lungs: Scattered rhonchi
Abdomen: Normal bowel sounds, soft, non-tender, non-distended.
Extremities: No clubbing, cyanosis or edema bilaterally.
Neuro: Sedate but arousable
He has newly diagnosed cardiomyopathy with ejection fraction of 25% and signs or symptoms of CHF. Will continue to treat with IV Lasix and continue to follow renal function closely with creatinine stable at 1.6. Reviewed chest x-ray which reveals
pleural effusion. Unclear whether may need thoracentesis but will try to diurese for now. Will stop diltiazem and start Toprol. Hold off on HECTOR inhibitors/ARB/Aldactone with renal insufficiency. Might consider Farxiga/Jardiance although given
comorbidities might hold off for now. Continue IV heparin bridging with eventual GI workup.
Original Note:
Today's Communication / Plan
-
Echo with severely decreased EF 25%, CXR with pulmonary effusion
Stop Cardizem
Start Toprol
IV Lasix
Continue heparin, follow APTT
Follow creatinine and hemoglobin
Impression / Plan
-
Assessment: This is an 89-year-old male with past medical history of permanent A-fib on Xarelto, prior CABG, CKD stage III, GERD on chronic PPI who presented to ED with left-sided chest tightness, SOB, and weakness. Patient was noted to have a
Hb of 7.0 while in the ED and subsequently received 1 units of PRBC. Cardiology was consulted for possible bridging from Xarelto due to history of multiple strokes. Patient notes that he has been SOB, cough and wheezing for about 3 months, does
not use inhaler and does not remember his medications.
Impression:
Iron deficiency anemia
Hb improved to 9.0
Permanent A-fib (on Xarelto)
Presentation with chest tightness and SOB
CKD stage III
History of CABG
MVR
Plan:
Iron deficiency anemia:
-His hemoglobin has improved from 7.0 on presentation to 9.0 s/p 2U PRBC, no further evidence of bleeding.
Permanent A-fib (on Xarelto):
-Will continue holding Xarelto given planned endoscopy and colonoscopy by GI. However due to patient's history of multiple cardioembolic strokes (2010 on Coumadin with therapeutic INR, 2016 while on renally dosed Pradaxa), will continue heparin
bridging.
-Continue heparin ggt, APTT 63.6 subtherapeutic goal is 73-111, increased infection rate by 2 units per protocol, recheck APTT in 6 hours.
-Follow Hb while on IV heparin.
Presentation with chest tightness and SOB
-Troponin negative, chest tightness resolved.
-CXR 04/23 with left basilar opacification and small left pleural effusion.
-Echo 04/23 with severely decreased LVEF 25%, with moderate pulmonary hypertension and pleural effusion (see data below).
-Continue DuoNebs.
-proBNP 2330.
-40mg IV Lasix bolus, Creatinine 1.6, follow creatinine.
-Stop Cardizem
-Start Toprol 50 mg once daily.
--Consider spironolactone and SGLT2.
CKD stage III
History of CABG
MVR
Data:
CXR 04/23/2024:
Left basilar opacification which could represent subsegmental atelectasis and/or pneumonia and small left pleural effusion.
Echo 04/23/2024:
Normal left ventricular chamber size. Mild concentric left ventricular hypertrophy. Severely reduced left ventricular systolic function. Global hypokinesis. LV ejection fraction is 25% visually. Stage III diastolic dysfunction suggestive of
restrictive filling pattern and increased filling pressures. Thickened mitral valve leaflets. Mitral annular calcification. There is at least moderate mitral regurgitation which may have been underestimated due to dense mitral annular
calcification.Indexed LA volume is severely abnormal (> 48 mL/m2).Trileaflet aortic valve. Thickened aortic valve with restricted leaflet motion. Mild to moderate aortic stenosis. Peak/mean gradients across the aortic valve are 11/5 mmHg. Using an
LVOT diameter of 1.9 cm, the aortic valve by the Continuity equation is calculated at 1.3 cm2. Mild aortic regurgitation. Tricuspid valve opens normally. Mild tricuspid regurgitation. Estimated pulmonary artery pressure of 52 mmHg. Assuming a right
atrial pressure of 15 mmHg. Dilated right atrium. Since echocardiogram March 2021 which was reviewed, ejection fraction is decreased from 50% to 25%. The right ventricle is dilated and hypokinetic with moderate pulmonary hypertension. Pleural
effusion is now seen.
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
Subjective
Date of Service: April 24, 2024
Patient seen and examined. He seems to be pretty comfortable and having appropriate conversations. He does not seem to be in any form of distress. He does not complain of any shortness of breath at this time and stated that the DuoNebs helped.
We are still waiting for him to be medically optimized for the planned procedure by GI and patient is agreeable to this plan.
Objective
Labs:
04/24/24 07:05
Labs
Hgb 9.0 g/dL (13.0-18.0) L 04/24/24 07:05
Hct 27.6 % (39.0-52.0) L 04/24/24 07:05
Plt Count 239 10^3/uL (130-400) 04/24/24 07:05
PT 16.8 Sec (11.4-14.6) H 04/24/24 07:05
INR 1.35 04/24/24 07:05
APTT 63.6 Sec (23.4-35.0) H 04/24/24 07:05
Sodium 142 mmol/L (135-145) 04/23/24 06:53
Potassium 3.9 mmol/L (3.5-5.1) 04/23/24 06:53
BUN 36 mg/dl (9-20) H 04/23/24 06:53
Creatinine 1.6 mg/dL (0.7-1.3) H 04/23/24 06:53
Glucose 108 mg/dl (70-99) H 04/23/24 06:53
Troponins
04/22/24
20:37
Troponin I 0.016
Vital Signs and I&O:
Vital Signs
Temp Pulse Resp BP Pulse Ox
97.8 F 96 16 136/71 97
04/24/24 07:30 04/24/24 08:16 04/24/24 07:30 04/24/24 08:16 04/24/24 07:30
Vital Signs
Temp Pulse Resp BP Pulse Ox
97.8 F 96 16 136/71 97
04/24/24 07:30 04/24/24 08:16 04/24/24 07:30 04/24/24 08:16 04/24/24 07:30
Intake & Output
04/22/24 04/23/24 04/24/24 04/25/24
06:59 06:59 06:59 06:59
Intake Total 251 / 251 1060 / 1060
Output Total 575 / 575 2500 / 2500
Balance -324 / -324 -1440 / -1440
Physical Exam
Physical Exam
General: Awake, alert, not in distress and holds appropriate conversation.
Neck:Supple, no JVD no bruit no goiter.
Respiratory: normal chest wall movement, normal respiratory effort, no respiratory distress,
Lungs: Clear to auscultation bilaterally, no wheeze, rhonchi, rubs bilaterally, normal expiratory phase.
Heart: S1, S2, Non displaced PMI, Irreg, no murmurs, No S3, S4, no rubs.
Gastrointestinal: Positive bowel sounds, soft, nontender, nondistended, no guarding or rigidity or organomegaly
Extremities: No pitting edema, no clubbing, cyanosis, good peripheral pulses, good range of motion bilaterally.
Neurological: Awake, alert, grossly nonfocal.
[2024-04-24 08:53] LABS: Blood Urea Nitrogen 27 mg/dl (9-20); Calcium 8.7 mg/dl (8.4-10.2); Carbon Dioxide 23 mmol/L (22-30); Chloride 103 mmol/L (98-107); Estimated Creatinine Clearance 29 ml/min; Glucose 88 mg/dl (70-99); Potassium 3.7 mmol/L (3.5-5.1); Sodium 141 mmol/L (135-145); eGFR 40.93
[2024-04-24 11:38] VITALS: BP 124/63
[2024-04-24] MEDS: LASIX 40 MG IV (11:44)
[2024-04-24] MEDS: HEPARIN 25000 UNITS/250 ML IV (12:32)
--- NOTE | 2024-04-24 12:40 | W.PN.HOSP.TC ---
Today's Communication/Plan
-
diuresis
hold on GI intervention until more euvolemic
Assessment / Plan
Assessment / Plan
General: Well developed, well nourished in NAD.
Neck: Supple, no JVD, HJR, carotids +2 B/L, no bruits bilaterally.
Heart: Non displaced PMI, Irreg, no murmurs, No S3, S4, no rubs.
Lungs: Clear to auscultation bilaterally, no wheeze, rhonchi, rubs bilaterally,
normal expiratory phase.
Abdomen: Normal bowel sounds, soft, non-tender, non-distended.
Extremities: No clubbing, cyanosis or edema bilaterally.
Neuro: Grossly nonfocal, awake, alert and oriented x3.
Symptomatic Blood Loss Anemia
Iron Deficiency anemia
-OK for CLD for now
-Transfused 2 units PRBCs
-monitor cbc
-PPI IV BID
-Empiric IV hep ok at this juncture with recurrent embolic strokes
-Anticipate EGD/C-Scope once Cardiac clearance - not clear at this standpoint
Shortness of breath
Pleural Effusion v atelectasis
Acute HFrEF and HFpEF
-EF 25%
-Cont IV diuresis
-hold on thora at this time
- Start Toprol
Paroxysmal Atrial Fibrillation
-Continue diltiazem
-Xarelto on hold in setting of symptomatic anemia - Consider bridge therapy given history of multiple TIAs/CVA - started on hep ggt
-Consult Cardiology
CKD Stage III
-Creatinine at baseline
Dementia
-Monitor for mood/behavior changes during hospitalization
BPH
-Continue tamsulosin
Hx Coronary Artery Disease s/p CABG
Hx CVA
DVT Proph: Hep ggt
Code Status: DNR
Total time spent on today's encounter was 50 minutes which included time spent in counseling the patient/family regarding diagnosis and treatment plan as listed above, goals of care, and symptom management. Case was discussed with nursing staff,
specialists, and care coordinators/case management. All labs and imaging personally reviewed by me. Remainder the time spent in detailed review of previous records, lab data, imaging, and other medical provider documentation.
Anticipated Discharge: > 48 hours
Subjective/Interval History
-
Date of Service: April 24, 2024
No acute events overnight, no symptoms of shortness of breath
Objective Data
-
Labs:
Laboratory Results
04/24/24 04/24/24 04/24/24
01:41 07:05 15:30
WBC 7.3
Hgb 9.0 L
Hct 27.6 L
Plt Count 239
PT 16.8 H
INR 1.35
APTT 56.6 H 63.6 H Pending
Sodium 141
Potassium 3.7
Chloride 103
Carbon Dioxide 23
BUN 27 H
Creatinine 1.6 H
Glucose 88
Calcium 8.7
Vital Signs:
Vital Signs
Temp Pulse Resp BP Pulse Ox
97.4 F 84 14 124/63 98
04/24/24 11:38 04/24/24 11:44 04/24/24 11:38 04/24/24 11:44 04/24/24 11:38
I&O
04/23/24 04/24/24 04/25/24
06:59 06:59 06:59
Intake Total 251 / 251 1060 / 1060
Output Total 575 / 575 2500 / 2500
Balance -324 / -324 -1440 / -1440
Review of Systems
-
History Source: Patient
All other systems: Not reviewed unless documented
Data Reviewed
-
Labs: Labs Reviewed by me
[2024-04-24 16:29] LABS: APTT 138.3 Sec (23.4-35.0)
[2024-04-24 16:38] VITALS: BP 112/56
[2024-04-24 17:03] VITALS: BP 120/59; PULSE 76; O2SAT 97
[2024-04-24] MEDS: LIPITOR 40 MG PO (17:29)
--- NOTE | 2024-04-24 17:34 | CM ---
Patient chart reviewed.
PT eval recommending home PT vs. SNF
Patient resides at the [facility] and had [facility] in past.
Will discuss with son Colten
PLAN: Home PT vs. SNF, will discuss options with son
[2024-04-24 23:27] VITALS: BP 104/55
[2024-04-25] VITALS (8 sets, daily range): BP systolic 89–127; BP diastolic 45–69; PULSE 88; O2SAT 95; BMI 20.7
[2024-04-25 07:17] LABS: Hematocrit 27.7 % (39.0-52.0); Mean Corp Hgb Conc. 32.5 g/dL (33.0-37.0); Mean Corpuscular Hgb 25.1 pg (27.0-31.0); Mean Corpuscular Volume 77.2 fL (80.0-94.0); Mean Platelet Volume 9.7 fL (7.4-10.4); Platelet Count 248 10^3/uL (130-400); Red Blood Cell Count 3.59 10^6/uL (4.70-6.10); White Blood Cell Count 7.8 10^3/uL (4.8-10.8)
--- NOTE | 2024-04-25 08:00 | PTCARENOTE ---
patients PTT resulted 151.0 this am. was on 11 units/hr. Per heparin protocol, hold for 1hr, then decrease rate by 200 units/hr. held at 7:45 am Heparin drip restarted at 8:45 on 9 units/hr. Md aware. next ptt draw at 14:45. Plan of care ongoing.
[2024-04-25] MEDS: PROTONIX IV 40 MG IV ×2 (08:41→20:40)
[2024-04-25] MEDS: NSS (PRESERVATIVE FREE) 10 ML IV ×2 (08:42→20:40)
[2024-04-25] MEDS: CYMBALTA DELAYED RELEASE 20 MG PO (08:42)
[2024-04-25] MEDS: FLOMAX 0.4 MG PO ×2 (08:42→20:42)
[2024-04-25] MEDS: LOPRESSOR 50 MG PO (08:42)
--- NOTE | 2024-04-25 09:59 | CM ---
Spoke Charlene nurse with [facility] to update.
PT recommend home PT vs. Skilled rehab.
Discussed with son & would like him to return to [facility] with home health
He stated patient had [facility] in past - referral placed in [facility].
<del>Spoke</del> with Lex at [facility].
PLAN: Discharge when stable to [facility] with home health
[2024-04-25 10:21] LABS: Blood Urea Nitrogen 23 mg/dl (9-20); Calcium 8.9 mg/dl (8.4-10.2); Carbon Dioxide 25 mmol/L (22-30); Chloride 103 mmol/L (98-107); Estimated Creatinine Clearance 30 ml/min; Glucose 98 mg/dl (70-99); Potassium 3.8 mmol/L (3.5-5.1); Sodium 139 mmol/L (135-145); eGFR 44.23
--- NOTE | 2024-04-25 10:53 | W.PN.CARDCBS ---
Addendum entered and electronically signed by Matt Maldonado MD 04/25/24 15:56:
I saw and examined the patient.
The Cheerleading Coach's note was reviewed and I agree with the note.
Comment:
GEN: No distress, awake, Ox3
HEENT: supple, anicteric, mmm
LUNGS: CTA, no wheezes/rales
CV: irreg, S1/S2, 1/6 syst LSB, no gallop
ABD: soft, BS+, NT/ND
EXT: No edema
NEURO: Gross non-focal
SKIN: No rash
PLan:
Volume status seems improved status post diuretics. Start Lasix 20 mg p.o. daily. Weight is overall down.
Will switch to Toprol and add lisinopril. Check cost of Farxiga.
Okay to proceed with EGD/colon. Hg at 9.0 and stable. Cont Iv heparin for now.
After GI evaluation will eventually consider ischemic eval.
Remains in rate controlled atrial fibrillation with left bundle branch block.
Addendum entered and electronically signed by Winsome Gimenez PA-C 04/25/24 13:27:
Impression:
Admitted with symptomatic blood loss anemia, chest pain and SOB 04/22/24
Iron deficiency anemia
Chest pain
Permanent A-fib
Chronic Xarelto OAC
CKD stage 3
CAD
remote PTCA in 1995
s/p CABG with KEATING to LAD, SVG to Ramus and SVG to PDA 10/24/08
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
History of recurrent cardiac embolic CVAs
previous CVA while on therapeutic Coumadin 2010
previous CVA while on Pradaxa 2016
Now on Xarelto 20 mg without recurrent CVA
Newly diagnosed CM EF 25% by echo 04/23/24
Acute HFrEF
Original Note:
Today's Communication / Plan
-
Place on tele
Check Troponin
Check ECG
Start lisinopril 5 mg daily
Start Lasix 20 mg PO daily
Start Farxiga 10 mg daily
Changed Lopressor to Toprol XL
Patient should proceed with GI work-up including EGD and colonoscopy if needed. Patient is hemodynamically stable with normal pulse ox on RA. Patient has been optimized from a cardiac standpoint for GI procedures.
Impression / Plan
-
PCP: Dr. Jose Tavarez
Cardiology: Dr. Jaeger
Impression:
Admitted with symptomatic blood loss anemia, chest pain and SOB 04/22/24
Iron deficiency anemia
Chest pain
Permanent A-fib
Chronic Xarelto OAC
CKD stage 3
CAD
remote PTCA in 1995
s/p CABG with KEATING to LAD, SVG to Ramus and SVG to PDA 10/24/08
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
History of recurrent cardiac embolic CVAs
previous CVA while on therapeutic Coumadin 2010
previous CVA while on Pradaxa 2016
Now on Xarelto 20 mg without recurrent CVA
Newly diagnosed CM EF 25% by echo 04/23/24
Echo 04/07/21: EF 50%, mitral valve opens normally, mild to mod MR, mild to moderate aortic regurgitation, mild TR with PAP 33 mmHg
Echo 04/23/24: EF 25%, stage III diastolic dysfunction, at least moderate MR which may be underestimated due to dense MAC, mild to moderate AAS peak/mean 11/5 mmHg and MISAEL 1.3 cm SQ, mild aortic regurgitation, mild TR
Plan:
-Patient was admitted with chest pain on 04/22/24 and found to be anemic with Hgb 7.0. Patient was given 2 units PRBCs and Hgb is stable at 9.0 on 04/25/24
-Outpatient dose of Xarelto 20 mg daily has been on hold since admission. Patient bridged with heparin gtt give h/o multiple recurrent CVAs as noted above.
-Patient was seen by GI and plan is for endo/colon this admission.
-EF newly reduced at 25% by echo 04/23/24. Outpatient dose of Cardizem CD changed to Toprol XL 25 mg BID
-Patient with CKD 3 and baseline Cre 1.5 to 1.7. Patient was not taking HECTOR/ARB prior to admission, will add lisinopril 5 mg daily.
-Start Farxiga 10 mg daily and will ask CM to check on cost
-pro-BNP 2330 on 04/23/24. Patient was given Lasix 20 mg IV x1 on 04/22/24, Lasix 40 mg IV x1 on 04/23/24 and then 40 mg IV again on 04/24/24. Patient was not taking a diuretic prior to admission. Will start Lasix 20 mg PO daily.
-Chest pain on admission and a single negative Troponin at that time. Will check additional Troponin now.
-ECG from 04/22/24 reviewed by me and shows known permanent Afib and a new LBBB. Recheck ECG now
-Patient is not on tele, will add 04/25/24.
-Patient should proceed with GI work-up including EGD and colonoscopy if needed. Patient is hemodynamically stable with normal pulse ox on RA. Patient has been optimized from a cardiac standpoint for GI procedures.
HPI: This is an 89-year-old male with past medical history of permanent A-fib on Xarelto, prior CABG, CKD stage III, GERD on chronic PPI who presented to ED with left-sided chest tightness, SOB, and weakness. Patient was noted to have a Hb of
7.0 while in the ED and subsequently received 1 units of PRBC. Cardiology was consulted for possible bridging from Xarelto due to history of multiple strokes. Patient notes that he has been SOB, cough and wheezing for about 3 months, does not use
inhaler and does not remember his medications.
Progress Note - Supervisor Cured Meats
Subjective
Date of Service: April 25, 2024
No recurrence of chest pain
Objective
Labs:
04/25/24 06:48
04/25/24 09:45
Labs
Hgb 9.0 g/dL (13.0-18.0) L 04/25/24 06:48
Hct 27.7 % (39.0-52.0) L 04/25/24 06:48
Plt Count 248 10^3/uL (130-400) 04/25/24 06:48
PT 16.8 Sec (11.4-14.6) H 04/24/24 07:05
INR 1.35 04/24/24 07:05
APTT 151.0 Sec (23.4-35.0) H* 04/25/24 06:48
Sodium 139 mmol/L (135-145) 04/25/24 09:45
Potassium 3.8 mmol/L (3.5-5.1) 04/25/24 09:45
BUN 23 mg/dl (9-20) H 04/25/24 09:45
Creatinine 1.5 mg/dL (0.7-1.3) H 04/25/24 09:45
Glucose 98 mg/dl (70-99) 04/25/24 09:45
Troponins
04/22/24
20:37
Troponin I 0.016
Vital Signs and I&O:
Vital Signs
Temp Pulse Resp BP Pulse Ox
97.6 F 81 18 127/68 99
04/25/24 07:19 04/25/24 08:42 04/25/24 07:19 04/25/24 08:42 04/25/24 09:46
Vital Signs
Temp Pulse Resp BP Pulse Ox
97.6 F 81 18 127/68 99
04/25/24 07:19 04/25/24 08:42 04/25/24 07:19 04/25/24 08:42 04/25/24 09:46
Intake & Output
04/23/24 04/24/24 04/25/24 04/26/24
06:59 06:59 06:59 06:59
Intake Total 251 / 251 1060 / 1060 880 / 880
Output Total 575 / 575 2500 / 2500 1750 / 1750
Balance -324 / -324 -1440 / -1440 -870 / -870
Physical Exam
Physical Exam
GEN: NAD
HEENT: mmm
LUNGS: No audible wheeze
CV: Irreg irreg
ABD: ND
EXT: No edema
NEURO: Gross non-focal
SKIN: No rash
[2024-04-25 12:47] LABS: Troponin I 0.018 ng/ml
--- NOTE | 2024-04-25 13:22 | CM ---
Addendum entered by Roxanna Perdomo 04/25/24 16:21:
EGD/Colonoscopy tomorrow
Original Note:
Case management consult for S[place]inderga cost.
Called pharmacy - $143.25 - tt to Winsome Gimenez
[2024-04-25] MEDS: FARXIGA PO (13:40)
[2024-04-25] MEDS: LASIX PO (13:40)
[2024-04-25] MEDS: ZESTRIL PO (13:41)
--- NOTE | 2024-04-25 13:45 | PTCARENOTE ---
Patient bp 92/48,57. 95%RA. Denies chest pain and SOB at this time. no s/s of distress noted. cardio made aware. Plan of care ongoing.
--- NOTE | 2024-04-25 13:59 | W.PN.HOSP.TC ---
Addendum entered and electronically signed by Drake Miranda MD 04/25/24 18:15:
Permanent atrial fibrillation
Original Note:
Today's Communication/Plan
-
switch to po lasix
GDMT
EGD/C-Scope tomorrow
Assessment / Plan
Assessment / Plan
General: Well developed, well nourished in NAD.
Neck: Supple, no JVD, HJR, carotids +2 B/L, no bruits bilaterally.
Heart: Non displaced PMI, Irreg, no murmurs, No S3, S4, no rubs.
Lungs: Clear to auscultation bilaterally, no wheeze, rhonchi, rubs bilaterally,
normal expiratory phase.
Abdomen: Normal bowel sounds, soft, non-tender, non-distended.
Extremities: No clubbing, cyanosis or edema bilaterally.
Neuro: Grossly nonfocal, awake, alert and oriented x3.
Symptomatic Blood Loss Anemia
Iron Deficiency anemia
-OK for CLD for now
-Transfused 2 units PRBCs
-monitor cbc
-PPI IV BID
-Empiric IV hep ok at this juncture with recurrent embolic strokes
-Anticipate EGD/C-Scope tomorrow, euvolemic
Shortness of breath
Pleural Effusion v atelectasis
Acute HFrEF and HFpEF
-EF 25%
-switch to PO lasix
-addd farxiga
-hold on thora at this time
- Start Toprol, ACEI
Paroxysmal Atrial Fibrillation
-Continue diltiazem
-Xarelto on hold in setting of symptomatic anemia - Consider bridge therapy given history of multiple TIAs/CVA - started on hep ggt
-Consult Cardiology
CKD Stage III
-Creatinine at baseline
Dementia
-Monitor for mood/behavior changes during hospitalization
BPH
-Continue tamsulosin
Hx Coronary Artery Disease s/p CABG
Hx CVA
DVT Proph: Hep ggt
Code Status: DNR
Anticipated Discharge: 24 - 48 hours
Subjective/Interval History
-
Date of Service: April 25, 2024
No acute events overnight
Objective Data
-
Labs:
Laboratory Results
04/25/24 04/25/24 04/25/24
06:48 09:45 14:45
WBC 7.8
Hgb 9.0 L
Hct 27.7 L
Plt Count 248
APTT 151.0 H* Pending
Sodium 139
Potassium 3.8
Chloride 103
Carbon Dioxide 25
BUN 23 H
Creatinine 1.5 H
Glucose 98
Calcium 8.9
Vital Signs:
Vital Signs
Temp Pulse Resp BP Pulse Ox
98.0 F 57 20 92/48 95
04/25/24 13:41 04/25/24 13:41 04/25/24 13:41 04/25/24 13:41 04/25/24 13:41
I&O
04/24/24 04/25/24 04/26/24
06:59 06:59 06:59
Intake Total 1060 / 1060 880 / 880
Output Total 2500 / 2500 1750 / 1750
Balance -1440 / -1440 -870 / -870
Review of Systems
-
History Source: Patient
All other systems: Not reviewed unless documented
Data Reviewed
-
Labs: Labs Reviewed by me
--- NOTE | 2024-04-25 15:02 | W.PN.GI.CBS2 ---
Today's Communication / Plan
-
EGD/colon tomorrow
Assessment / Plan
-
#Occult GI Bleed
#Heme (+) Stools
#Symptomatic Anemia #Iron Deficiency Anemia
#Hx of Adenomatous Colon Polyps
#Hx of CABG #HFrEF
#Hx of Cardioembolic TIAs
Mr. Oliva is an 89 y.o male with extensive past medical history as detailed below notable for prior MVR, hx of CAD s/p CABG, multiple TIAs, CKD, adenomatous colon polyps, and chronic dementia who presented to the ED with symptomatic anemia found to
have Hgb 7 and dark heme (+) stool. Concern for occult GI bleed resulting in his presentation and significant drop in Hgb from 13 (11/2023) now 7s here on admission without any overt GI blood loss. History significant for colon polyps (both
adenomatous and benign) during his previous colonoscopies, no prior EGD. Suspicious for AVMs resulting in occult GI blood loss, although malignancy cannot be excluded. Favor bi-directional endoscopic evaluation particularly if patient is to be
restarted on his xarelto given his known A Fib and multiple prior TIAs. Otherwise, patient remains HD-stable s/p 2 uPRBCs without signs of active GI bleeding.
Recommendations:
- EGD/colonoscopy tomorrow
- hold heparin at 3am.
d/w Dr. Miranda by TT
Subjective
Subjective
Date of Service: April 25, 2024
Pt willing to have egd/colon tomorrow. no abdominal pain. cleared by cardiology
Objective
Data Reviewed
Laboratory Data:
Laboratory Results
04/25/24 06:48
04/25/24 09:45
Laboratory Results
PT 16.8 Sec (11.4-14.6) H 04/24/24 07:05
INR 1.35 04/24/24 07:05
APTT 151.0 Sec (23.4-35.0) H* 04/25/24 06:48
Total Bilirubin 0.4 mg/dl (0.2-1.3) 04/22/24 20:37
AST 16 U/L (17-59) L 04/22/24 20:37
ALT 13 U/L (0-50) 04/22/24 20:37
Alkaline Phosphatase 79 U/L (38-126) 04/22/24 20:37
Vital Signs and I&O:
Vital Signs
Temp Pulse Resp BP Pulse Ox
98.0 F 57 20 92/48 95
04/25/24 13:41 04/25/24 13:41 04/25/24 13:41 04/25/24 13:41 04/25/24 13:41
I&O
04/24/24 04/25/24 04/26/24
06:59 06:59 06:59
Intake Total 1060 / 1060 880 / 880
Output Total 2500 / 2500 1750 / 1750
Balance -1440 / -1440 -870 / -870
Physical Exam
Physical Exam
HEENT: Anicteric
GI: Soft, Non Distended and Non Tender
[2024-04-25 15:48] LABS: APTT > 200.0 Sec (23.4-35.0)
[2024-04-25] MEDS: NULYTELY SOLUTION 4 LITERS PO (17:28)
[2024-04-25] MEDS: LIPITOR 40 MG PO (17:29)
[2024-04-25] MEDS: HEPARIN 25000 UNITS/250 ML IV (18:09)
[2024-04-25] MEDS: TOPROL XL PO (21:00)
[2024-04-26 03:16] VITALS: BP 110/51
[2024-04-26 06:00] VITALS: BMI 21.5
--- NOTE | 2024-04-26 06:27 | PTCARENOTE ---
Pt scheduled for EGD/colon today, only able to tolerate 1/2 of prep solution, multiple attempts were done and much encouragement provided to pt, pt getting angry at staff, continued with refusals. Last stool this morning, loose dark brown/greenish
color. Gastroentorologist production technologist made aware, heparing infusion on hold since 299 as ordered.
[2024-04-26 07:10] VITALS: BP 118/62
[2024-04-26 08:13] LABS: APTT 31.6 Sec (23.4-35.0)
[2024-04-26] MEDS: PROTONIX IV 40 MG IV ×2 (08:26→19:35)
[2024-04-26] MEDS: FLOMAX 0.4 MG PO ×2 (08:27→19:35)
[2024-04-26] MEDS: NSS (PRESERVATIVE FREE) 10 ML IV ×2 (08:27→19:35)
[2024-04-26] MEDS: TOPROL XL 25 MG PO (08:27)
[2024-04-26] MEDS: LASIX 20 MG PO (08:28)
[2024-04-26] MEDS: ZESTRIL 5 MG PO (08:28)
[2024-04-26] MEDS: FARXIGA PO (08:29)
[2024-04-26] MEDS: CYMBALTA DELAYED RELEASE 20 MG PO (08:29)
[2024-04-26 09:04] LABS: ALT (SGPT) 13 U/L (0-50); AST (SGOT) 16 U/L (17-59); Albumin 3.8 g/dl (3.5-5.0); Alkaline Phosphatase 79 U/L (38-126); Blood Urea Nitrogen 24 mg/dl (9-20); Calcium 9.1 mg/dl (8.4-10.2); Carbon Dioxide 25 mmol/L (22-30); Chloride 99 mmol/L (98-107); Estimated Creatinine Clearance 27 ml/min; Glucose 94 mg/dl (70-99); Potassium 4.3 mmol/L (3.5-5.1); Sodium 137 mmol/L (135-145); Total Bilirubin 0.7 mg/dl (0.2-1.3); Total Protein 5.7 g/dl (6.3-8.2); eGFR 38.06
[2024-04-26 09:25] LABS: Hematocrit 28.4 % (39.0-52.0); Hemoglobin 9.2 g/dL (13.0-18.0); Mean Corp Hgb Conc. 32.4 g/dL (33.0-37.0); Mean Corpuscular Hgb 26.1 pg (27.0-31.0); Mean Corpuscular Volume 80.5 fL (80.0-94.0); Mean Platelet Volume 10.4 fL (7.4-10.4); Platelet Count 239 10^3/uL (130-400); Red Blood Cell Count 3.53 10^6/uL (4.70-6.10); Red Cell Dist. Width 16.5 % (11.5-14.5); White Blood Cell Count 6.9 10^3/uL (4.8-10.8)
--- NOTE | 2024-04-26 10:31 | W.PN.CARDCBS ---
Today's Communication / Plan
-
For EGD/colon today. Hemoglobin stable at 9.0.
Resume Xarelto after procedure today.
Continue medical therapy for new cardiomyopathy. Continue Toprol, lisinopril, and Lasix 20 mg daily.
Continue Farxiga. Blood pressure remains borderline.
He has diuresed well. He is also getting a bowel prep today. Creatinine overall stable at 1.7.
Will follow
Impression / Plan
-
PCP: Dr. Jose Tavarez
Cardiology: Dr. Jaeger
Impression:
Admitted with symptomatic blood loss anemia, chest pain and SOB 04/22/24
Iron deficiency anemia
Chest pain
Permanent A-fib
Chronic Xarelto OAC
CKD stage 3
CAD
remote PTCA in 1995
s/p CABG with KEATING to LAD, SVG to Ramus and SVG to PDA 10/24/08
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
History of recurrent cardiac embolic CVAs
previous CVA while on therapeutic Coumadin 2010
previous CVA while on Pradaxa 2016
Now on Xarelto 20 mg without recurrent CVA
Newly diagnosed CM EF 25% by echo 04/23/24
Echo 04/07/21: EF 50%, mitral valve opens normally, mild to mod MR, mild to moderate aortic regurgitation, mild TR with PAP 33 mmHg
Echo 04/23/24: EF 25%, stage III diastolic dysfunction, at least moderate MR which may be underestimated due to dense MAC, mild to moderate AAS peak/mean 11/5 mmHg and MISAEL 1.3 cm SQ, mild aortic regurgitation, mild TR
Plan:
-Patient was admitted with chest pain on 04/22/24 and found to be anemic with Hgb 7.0. Patient was given 2 units PRBCs and Hgb is stable at 9.2.
-Outpatient dose of Xarelto 20 mg daily has been on hold since admission. Patient bridged with heparin gtt give h/o multiple recurrent CVAs as noted above.
-Patient was seen by GI and plan is for endo/colon today
-EF newly reduced at 25% by echo 04/23/24. Outpatient dose of Cardizem CD changed to Toprol XL 25 mg BID
-Patient with CKD 3 and baseline Cre 1.5 to 1.7. Patient was not taking HECTOR/ARB prior to admission, cont lisinopril 5 mg daily.
-Start Farxiga 10 mg daily and will ask CM to check on cost
-pro-BNP 2330 on 04/23/24. Patient was given Lasix 20 mg IV x1 on 04/22/24, Lasix 40 mg IV x1 on 04/23/24 and then 40 mg IV again on 04/24/24. Patient was not taking a diuretic prior to admission. Will cont Lasix 20 mg PO daily.
-Chest pain on admission and a trops negative
-ECG from 04/22/24 reviewed by me and shows known permanent Afib and a new LBBB.
-Patient should proceed with GI work-up including EGD and colonoscopy if needed. Patient is hemodynamically stable with normal pulse ox on RA. Patient has been optimized from a cardiac standpoint for GI procedures.
HPI: This is an 89-year-old male with past medical history of permanent A-fib on Xarelto, prior CABG, CKD stage III, GERD on chronic PPI who presented to ED with left-sided chest tightness, SOB, and weakness. Patient was noted to have a Hb of
7.0 while in the ED and subsequently received 1 units of PRBC. Cardiology was consulted for possible bridging from Xarelto due to history of multiple strokes. Patient notes that he has been SOB, cough and wheezing for about 3 months, does not use
inhaler and does not remember his medications.
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
Subjective
Date of Service: April 26, 2024
denies chest pains/sob. For EGD today.
Objective
Labs:
04/26/24 07:07
04/26/24 07:07
Labs
Hgb 9.2 g/dL (13.0-18.0) L 04/26/24 07:07
Hct 28.4 % (39.0-52.0) L 04/26/24 07:07
Plt Count 239 10^3/uL (130-400) 04/26/24 07:07
PT 16.8 Sec (11.4-14.6) H 04/24/24 07:05
INR 1.35 04/24/24 07:05
APTT 31.6 Sec (23.4-35.0) 04/26/24 07:07
Sodium 137 mmol/L (135-145) 04/26/24 07:07
Potassium 4.3 mmol/L (3.5-5.1) 04/26/24 07:07
BUN 24 mg/dl (9-20) H 04/26/24 07:07
Creatinine 1.7 mg/dL (0.7-1.3) H 04/26/24 07:07
Glucose 94 mg/dl (70-99) 04/26/24 07:07
Troponins
04/25/24
12:10
Troponin I 0.018
Vital Signs and I&O:
Vital Signs
Temp Pulse Resp BP Pulse Ox
97.6 F 82 18 118/62 96
04/26/24 07:10 04/26/24 08:28 04/26/24 07:10 04/26/24 08:28 04/26/24 07:10
Vital Signs
Temp Pulse Resp BP Pulse Ox
97.6 F 82 18 118/62 96
04/26/24 07:10 04/26/24 08:28 04/26/24 07:10 04/26/24 08:28 04/26/24 07:10
Intake & Output
04/24/24 04/25/24 04/26/24 04/27/24
06:59 06:59 06:59 06:59
Intake Total 1060 / 1060 880 / 880 800 / 800
Output Total 2500 / 2500 1750 / 1750 375 / 375
Balance -1440 / -1440 -870 / -870 425 / 425
Physical Exam
Physical Exam
GEN: No distress, awake, Ox3
HEENT: supple, anicteric, mmm
LUNGS: CTA, no wheezes/rales
CV: Irreg, S1/S2, 1/6 syst LSB, no gallop
ABD: soft, BS+, NT/ND
EXT: No edema
NEURO: Gross non-focal
SKIN: No rash
[2024-04-26 11:00] VITALS: BP 111/63
--- NOTE | 2024-04-26 13:36 | W.PN.HOSP.TC ---
Today's Communication/Plan
-
EGD/[place] today
Xarelto after procedure and monitor hgb
GDMT
Assessment / Plan
Assessment / Plan
General: Well developed, well nourished in NAD.
Neck: Supple, no JVD, HJR, carotids +2 B/L, no bruits bilaterally.
Heart: Non displaced PMI, Irreg, no murmurs, No S3, S4, no rubs.
Lungs: Clear to auscultation bilaterally, no wheeze, rhonchi, rubs bilaterally,
normal expiratory phase.
Abdomen: Normal bowel sounds, soft, non-tender, non-distended.
Extremities: No clubbing, cyanosis or edema bilaterally.
Neuro: Grossly nonfocal, awake, alert and oriented x3.
Symptomatic Blood Loss Anemia
Iron Deficiency anemia
-Transfused 2 units PRBCs
-monitor cbc
-PPI IV BID
-Empiric IV hep ok at this juncture with recurrent embolic strokes
- EGD/C-Scope today
-resume xarelto after procedure
Shortness of breath
Pleural Effusion v atelectasis
Acute HFrEF and HFpEF
-EF 25%
-switch to PO lasix
-add farxiga
-hold on thora at this time
- Start Toprol, ACEI
Paroxysmal Atrial Fibrillation
-Continue diltiazem
-Xarelto on hold in setting of symptomatic anemia -start xarelto after procedure today
-Consult Cardiology
CKD Stage III
-Creatinine at baseline
Dementia
-Monitor for mood/behavior changes during hospitalization
BPH
-Continue tamsulosin
Hx Coronary Artery Disease s/p CABG
Hx CVA
DVT Proph: Hep ggt
Code Status: DNR
Anticipated Discharge: 24 - 48 hours
Subjective/Interval History
-
Date of Service: April 26, 2024
No acute events overnight
Objective Data
-
Labs:
Laboratory Results
04/26/24
07:07
WBC 6.9
Hgb 9.2 L
Hct 28.4 L
Plt Count 239
APTT 31.6
Sodium 137
Potassium 4.3
Chloride 99
Carbon Dioxide 25
BUN 24 H
Creatinine 1.7 H
Glucose 94
Calcium 9.1
Total Bilirubin 0.7
AST 16 L
ALT 13
Alkaline Phosphatase 79
Vital Signs:
Vital Signs
Temp Pulse Resp BP Pulse Ox
97.8 F 84 18 111/63 97
04/26/24 11:00 04/26/24 11:00 04/26/24 11:00 04/26/24 11:00 04/26/24 11:00
I&O
04/25/24 04/26/24 04/27/24
06:59 06:59 06:59
Intake Total 880 / 880 800 / 800
Output Total 1750 / 1750 375 / 375
Balance -870 / -870 425 / 425
Review of Systems
-
History Source: Patient
All other systems: Not reviewed unless documented
Data Reviewed
-
Labs: Labs Reviewed by me
--- NOTE | 2024-04-26 13:55 | W.PN.UPDATE ---
Update Note
Progress Note Update
Spoke with patient's son this morning and again this afternoon on 04/26. Unfortunately, patient drank less than half the prep and not adequate enough to perform colonoscopy at this time. Given this, discussed that we can at least still perform the
EGD today to at least r/o ulcer, AVMs, erosions, mass or other significant pathology throughout the UGI tract.
If EGD is unremarkable, discussed risks and benefits of pursuing a colonoscopy later this admission. However, I emphasized that I'm not sure how this would change the patient's overall management that even if a potential colon mass was found, the
patient is likely not a surgical candidate. Nor would the patient's son even want this (ie surgery, etc). After a long discussion, patient's son was in complete agreement in DEFERRING any further plans to pursue a colonoscopy this admission. If his
Hgb continues to drift and/or patient were to have bloody stools as an outpatient, this could then be potentially reconsidered in the future. However, I strongly advised conservative measures as I personally feel that this is best given his advanced
age, co-morbidities and chronic dementia along with further discussions with his Cyanide Pot Tender about patient's skilled nursing anticoagulation while reviewing risks and benefits.
Addressed all questions and concerns. Patient's son demonstrated understanding and was very appreciate for the call.
See same day EGD report for complete findings and recommendations.
[2024-04-26 13:58] VITALS: BMI 21.5
--- NOTE | 2024-04-26 14:02 | CM ---
Patient for EGD today, colonoscopy was not able to be done d/t patient not drinking adequate amount of prep.
CM available for needs.
PT recommended home PT vs. SNF
Son wanted patient to return to [facility] with HH
Referral to [facility] as patient had in the past.
PLAN: [facility] with [facility]
--- NOTE | 2024-04-26 15:07 | PN.CDI ---
CDI
- -
CDI:
Physician Documentation Request
Admit Date: 04/22/24 22:34
Dear Doctor Ruth,
Clinical Indicators:
04/22 H & P, 'Acute Symptomatic Anemia - Presumed due to blood loss Melena / Heme Positive Stool'
04/26 PN, 'Symptomatic Blood Loss Anemia..Iron Deficiency anemia'
PRBCs 2 units transfused.
Hgb/Hct trend:
04/22/24 04/24/24 04/26/24
20:37 07:05 07:07
Hgb 7.0 L 9.0 L 9.2 L
Hct 22.4 L 27.6 L 28.4 L
Please clarify which of the following accurately represents the acuity of the symptomatic blood loss anemia:
Acute
Acute on Chronic
Chronic
Other, please specify
Use of terms such as suspected, likely, concern for, or probable (associated with a specific diagnosis that is being evaluated, monitored, or treated as if it exists) are acceptable and can be coded in the inpatient setting, when documented at the
time of discharge.
Thank you,
Merary Phillips RN BSN
CDI Specialist
available via tiger text
Please use your independent medical judgment in providing your response.
[2024-04-26 15:10] VITALS: BP 108/58
--- NOTE | 2024-04-26 15:15 | PN.CDI ---
CDI
- -
CDI:
Physician Documentation Request
Admit Date: 04/22/24 22:34
Dear Doctor Ruth,
Clinical Indicators:
Patient admitted with acute symptomatic anemia.
04/22 H & P, 'Acute Symptomatic Anemia - Presumed due to blood loss Melena / Heme Positive Stool'
04/23 PN, 'Xarelto on hold in setting of symptomatic anemia'
Please clarify the relationship between these conditions:
Yes, blood loss anemia is related to/associated with/exacerbated by Xarelto use
No, blood loss anemia is not related to/associated with/exacerbated by Xarelto use but it is due to ___. (Please specify)
Unable to determine
Use of terms such as suspected, likely, concern for, or probable (associated with a specific diagnosis that is being evaluated, monitored, or treated as if it exists) are acceptable and can be coded in the inpatient setting, when documented at the
time of discharge.
Thank you,
Merary Phillips RN BSN
CDI Specialist
available via tiger text
Please use your independent medical judgment in providing your response.
--- NOTE | 2024-04-26 15:57 | PTCARENOTE ---
verbal order form Ritesh Ledesma. Pt to follow a low fat Diet. order in place.
[2024-04-26] MEDS: XARELTO 15 MG PO (17:18)
[2024-04-26] MEDS: LIPITOR 40 MG PO (17:18)
[2024-04-26 19:35] VITALS: BP 99/51
[2024-04-26] MEDS: TOPROL XL PO (19:43)
[2024-04-26 23:20] VITALS: BP 106/56
[2024-04-27 03:00] VITALS: BP 107/55
[2024-04-27 06:00] VITALS: BMI 20.7
[2024-04-27 07:10] VITALS: BP 135/64
[2024-04-27] MEDS: FLOMAX 0.4 MG PO ×2 (08:19→20:59)
[2024-04-27] MEDS: TYLENOL 650 MG PO ×2 (08:19→17:39)
[2024-04-27] MEDS: CYMBALTA DELAYED RELEASE 20 MG PO (08:19)
[2024-04-27] MEDS: FARXIGA 10 MG PO (08:19)
[2024-04-27] MEDS: LASIX 20 MG PO (08:20)
[2024-04-27] MEDS: ZESTRIL 5 MG PO (08:20)
[2024-04-27] MEDS: TOPROL XL 25 MG PO ×2 (08:21→20:59)
[2024-04-27 08:22] LABS: Hematocrit 27.4 % (39.0-52.0); Hemoglobin 8.8 g/dL (13.0-18.0); Mean Corp Hgb Conc. 32.1 g/dL (33.0-37.0); Mean Corpuscular Hgb 24.9 pg (27.0-31.0); Mean Corpuscular Volume 77.4 fL (80.0-94.0); Mean Platelet Volume 9.6 fL (7.4-10.4); Platelet Count 231 10^3/uL (130-400); Red Blood Cell Count 3.54 10^6/uL (4.70-6.10); Red Cell Dist. Width 16.3 % (11.5-14.5); White Blood Cell Count 7.9 10^3/uL (4.8-10.8)
[2024-04-27] MEDS: PROTONIX IV IV (08:22)
[2024-04-27] MEDS: NSS (PRESERVATIVE FREE) IV (08:22)
[2024-04-27 09:02] LABS: ALT (SGPT) 13 U/L (0-50); AST (SGOT) 18 U/L (17-59); Albumin 3.5 g/dl (3.5-5.0); Alkaline Phosphatase 80 U/L (38-126); Blood Urea Nitrogen 24 mg/dl (9-20); Calcium 8.8 mg/dl (8.4-10.2); Carbon Dioxide 23 mmol/L (22-30); Chloride 104 mmol/L (98-107); Estimated Creatinine Clearance 28 ml/min; Glucose 96 mg/dl (70-99); Potassium 4.3 mmol/L (3.5-5.1); Sodium 139 mmol/L (135-145); Total Bilirubin 0.7 mg/dl (0.2-1.3); Total Protein 5.5 g/dl (6.3-8.2); eGFR 40.93
--- NOTE | 2024-04-27 09:08 | W.PN.CARDCBS ---
Addendum entered and electronically signed by Matt Maldonado MD 04/27/24 13:53:
I saw and examined the patient.
The Pediatric Neurologist's note was reviewed and I agree with the note.
Comment:
GEN: No distress, awake, Ox3
HEENT: supple, anicteric, mmm
LUNGS: scatt rhonchi
CV: Irreg, S1/S2, 1/6 syst LSB, no gallop
ABD: soft, BS+, NT/ND
EXT: No edema
NEURO: Gross non-focal
SKIN: No rash
EGD results noted. No plans for colonoscopy
back on xarelto. Hg stable 8.8. Cont pantoprazole
Cont Lisinopril, Toprol. Cont lasix/farxiga.
cardiac issues stable.
will sign off. call with questions.
Original Note:
Today's Communication / Plan
-
Continue Xarelto, Farxiga, Toprol, furosemide, and lisinopril
Follow creatinine
Continue pantoprazole
Follow-up with cardiology outpatient
Impression / Plan
-
PCP: Dr. Jose Tavarez
Cardiology: Dr. Jaeger
Assessment: This is an 89-year-old male with past medical history of permanent A-fib on Xarelto, prior CABG, CKD stage III, GERD on chronic PPI who presented to ED with left-sided chest tightness, SOB, and weakness. Patient was noted to have a
Hb of 7.0 while in the ED and subsequently received 1 units of PRBC. Cardiology was consulted for possible bridging from Xarelto due to history of multiple strokes.
Impression:
Symptomatic blood loss iron deficiency anemia
Hb currently 8.8
Permanent A-fib (on Xarelto on admission)
Presentation with chest tightness and SOB
HFrEF
CKD stage III
History of CABG
MVR
BPH
Plan:
Symptomatic blood loss iron deficiency anemia:
-Hb labile s/p 2U PRBC, currently 8.8, no evidence of acute bleeding, normal looking stool per RN.
-EGD 04/26/2024 unremarkable; no evidence of AVMs, ulcerations, or masses portion of duodenum. However, due to inadequate bowel prep, and patient's advanced age colonoscopy was not done. Patient may not be a candidate for surgery in case of colon
resection if mass is found on colonoscopy.
-Moving forward, patient's son agrees to defer colonoscopy at this time, will reconsider if patient Hb continues to decline or if patient experiences BRBPR.
-We will continue Xarelto
-IV Protonix.
-Follow Hb with serial CBC.
Permanent A-fib:
-ECG with A-fib and new LBBB.
-Continue Xarelto 20 mg daily, heparin GTT discontinued.
-APTT 31.6, creatinine 1.6.
HFrEF
-proBNP 2330 on 04/23/2024, patient not taking Lasix outpatient.
-Echo 04/23/2024 with newly reduced EF at 25%. Outpatient Cardizem CD changed to Toprol XL 25 mg twice daily.
-Continue Lasix 20 mg p.o. daily, patient will continue on discharge.
-Continue Farxiga and lisinopril.
Presentation with chest tightness and SOB
-Resolved
-Most likely due to new onset HFrEF vs pulmonary pathology.
-Continue Lasix
-Continue DuoNebs as needed
CKD stage III
-Creatinine at baseline 1.6
-Monitor while on Lasix.
History of CABG
MVR
Data:
EGD 04/26/2024:
No significant findings throughout the upper examined GI tract to explain patient's acute anemia and heme (+) stools
Small vascular blebs were found in the proximal esophagus.
Small-sized hiatal hernia without any erosions.
A few benign appearing gastric polyps. Left intact as endoscopically consistent with benign fundic gland polyps and all less than 1 cm
Otherwise, normal stomach on direct and retroflexion views.
Normal examined duodenum up to the fourth portion without any AVMs, ulcerations, polyps or masses
The examination was otherwise normal.
No specimens collected.
CXR 04/23/2024:
Left basilar opacification which could represent subsegmental atelectasis and/or pneumonia and small left pleural effusion.
Echo 04/23/2024:
Normal left ventricular chamber size. Mild concentric left ventricular hypertrophy. Severely reduced left ventricular systolic function. Global hypokinesis. LV ejection fraction is 25% visually. Stage III diastolic dysfunction suggestive of
restrictive filling pattern and increased filling pressures. Thickened mitral valve leaflets. Mitral annular calcification. There is at least moderate mitral regurgitation which may have been underestimated due to dense mitral annular
calcification.Indexed LA volume is severely abnormal (> 48 mL/m2).Trileaflet aortic valve. Thickened aortic valve with restricted leaflet motion. Mild to moderate aortic stenosis. Peak/mean gradients across the aortic valve are 11/5 mmHg. Using an
LVOT diameter of 1.9 cm, the aortic valve by the Continuity equation is calculated at 1.3 cm2. Mild aortic regurgitation. Tricuspid valve opens normally. Mild tricuspid regurgitation. Estimated pulmonary artery pressure of 52 mmHg. Assuming a right
atrial pressure of 15 mmHg. Dilated right atrium. Since echocardiogram March 2021 which was reviewed, ejection fraction is decreased from 50% to 25%. The right ventricle is dilated and hypokinetic with moderate pulmonary hypertension. Pleural
effusion is now seen.
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
Subjective
Date of Service: April 27, 2024
Patient was seen and examined lying comfortably in his bed with no acute complaints today. Denies chest pain, shortness of breath, abdominal pain, fever, chills, urinary symptoms. There was mild expiratory wheezes bilaterally but more on the right
side. Patient had a similar while the RN was changing him and reported brown and normal-looking stool.
Current medications include Toprol 25 mg p.o. twice daily, lisinopril 5 mg p.o. daily, Farxiga 10 mg p.o. daily, furosemide 20 mg p.o. daily, Xarelto 15 mg p.o. daily, atorvastatin 40 mg p.o. daily, pantoprazole 40 mg p.o. twice daily.
WBC count 7.9, Hb 8.8 (was 9.2 yesterday), platelets 231, APTT 31.6 (was 40 yesterday), creatinine 1.6.
BP 135/64, pulse 102, respiratory 18, afebrile, saturating at 98% on room air, weight 63.5 kg (71 kg on admission), I's and O's -300mL.
Objective
Labs:
04/27/24 08:02
04/27/24 08:02
Labs
Hgb 8.8 g/dL (13.0-18.0) L 04/27/24 08:02
Hct 27.4 % (39.0-52.0) L 04/27/24 08:02
Plt Count 231 10^3/uL (130-400) 04/27/24 08:02
PT 16.8 Sec (11.4-14.6) H 04/24/24 07:05
INR 1.35 04/24/24 07:05
APTT 31.6 Sec (23.4-35.0) 04/26/24 07:07
Sodium 139 mmol/L (135-145) 04/27/24 08:02
Potassium 4.3 mmol/L (3.5-5.1) 04/27/24 08:02
BUN 24 mg/dl (9-20) H 04/27/24 08:02
Creatinine 1.6 mg/dL (0.7-1.3) H 04/27/24 08:02
Glucose 96 mg/dl (70-99) 04/27/24 08:02
Troponins
04/25/24
12:10
Troponin I 0.018
Vital Signs and I&O:
Vital Signs
Temp Pulse Resp BP Pulse Ox
98.2 F 102 18 135/64 98
04/27/24 07:10 04/27/24 08:21 04/27/24 07:10 04/27/24 08:21 04/27/24 07:10
Vital Signs
Temp Pulse Resp BP Pulse Ox
98.2 F 102 18 135/64 98
04/27/24 07:10 04/27/24 08:21 04/27/24 07:10 04/27/24 08:21 04/27/24 07:10
Intake & Output
04/25/24 04/26/24 04/27/24 04/28/24
06:59 06:59 06:59 06:59
Intake Total 880 / 880 800 / 800 200 / 200
Output Total 1750 / 1750 375 / 375 500 / 500
Balance -870 / -870 425 / 425 -300 / -300
Physical Exam
Physical Exam
GEN: No distress, awake, Ox3
HEENT: supple, anicteric, mmm
LUNGS: CTA, no wheezes/rales
CV: Irreg, S1/S2, 1/6 syst LSB, no gallop
ABD: soft, BS+, NT/ND
EXT: No edema
NEURO: Gross non-focal
SKIN: No rash
[2024-04-27] MEDS: NSS (PRESERVATIVE FREE) 10 ML IV (09:19)
[2024-04-27] MEDS: PROTONIX IV 40 MG IV (09:20)
[2024-04-27 11:00] VITALS: BP 114/53
--- NOTE | 2024-04-27 12:10 | W.PN.HOSP.TC ---
Today's Communication/Plan
-
monitor cbc on xarelto
ppi
Assessment / Plan
Assessment / Plan
General: Well developed, well nourished in NAD.
Neck: Supple, no JVD, HJR, carotids +2 B/L, no bruits bilaterally.
Heart: Non displaced PMI, Irreg, no murmurs, No S3, S4, no rubs.
Lungs: Clear to auscultation bilaterally, no wheeze, rhonchi, rubs bilaterally,
normal expiratory phase.
Abdomen: Normal bowel sounds, soft, non-tender, non-distended.
Extremities: No clubbing, cyanosis or edema bilaterally.
Neuro: Grossly nonfocal, awake, alert and oriented x3.
Symptomatic Blood Loss Anemia
Iron Deficiency anemia
-Transfused 2 units PRBCs
-monitor cbc
-PPI IV daily
-Empiric IV hep ok at this juncture with recurrent embolic strokes
- EGD 04/26 - on acute bleeding - holding further c-scope as patient/son want to hold off - udnerstand risks
-resume xarelto 04/26 - monitor cbc
Shortness of breath
Pleural Effusion v atelectasis
Acute HFrEF and HFpEF
-EF 25%
-switch to PO lasix
-add farxiga
-hold on thora at this time
- Start Toprol, ACEI
Paroxysmal Atrial Fibrillation
-Continue diltiazem
-Xarelto
-Consult Cardiology
CKD Stage III
-Creatinine at baseline
Dementia
-Monitor for mood/behavior changes during hospitalization
BPH
-Continue tamsulosin
Hx Coronary Artery Disease s/p CABG
Hx CVA
DVT Proph: xarelto
Code Status: DNR
Anticipated Discharge: Within 24 hours
Subjective/Interval History
-
Date of Service: April 27, 2024
restarted xarelto
Objective Data
-
Labs:
Laboratory Results
04/27/24
08:02
WBC 7.9
Hgb 8.8 L
Hct 27.4 L
Plt Count 231
Sodium 139
Potassium 4.3
Chloride 104
Carbon Dioxide 23
BUN 24 H
Creatinine 1.6 H
Glucose 96
Calcium 8.8
Total Bilirubin 0.7
AST 18
ALT 13
Alkaline Phosphatase 80
Vital Signs:
Vital Signs
Temp Pulse Resp BP Pulse Ox
98.2 F 102 18 135/64 98
04/27/24 07:10 04/27/24 08:21 04/27/24 07:10 04/27/24 08:21 04/27/24 07:10
I&O
04/26/24 04/27/24 04/28/24
06:59 06:59 06:59
Intake Total 800 / 800 200 / 200
Output Total 375 / 375 500 / 500
Balance 425 / 425 -300 / -300
Review of Systems
-
History Source: Patient
All other systems: Not reviewed unless documented
Data Reviewed
-
Labs: Labs Reviewed by me
[2024-04-27 15:15] VITALS: BP 129/98
[2024-04-27] MEDS: XARELTO 15 MG PO (17:39)
[2024-04-27] MEDS: LIPITOR 40 MG PO (17:39)
[2024-04-27 19:34] VITALS: BP 104/51
[2024-04-27 23:17] VITALS: BP 86/46
--- NOTE | 2024-04-28 01:17 | W.PN.UPDATE ---
Update Note
Progress Note Update
after evening dose of lopressor 25mg bp dropped to 80s/40s. pt asymptomatic. Will closely monitor.
may need to consider decreasing dose
[2024-04-28 03:53] VITALS: BP 103/55
[2024-04-28 06:00] VITALS: BMI 21.3
[2024-04-28 07:05] VITALS: BP 109/58
[2024-04-28 07:43] LABS: Hematocrit 28.6 % (39.0-52.0); Mean Corp Hgb Conc. 31.5 g/dL (33.0-37.0); Mean Corpuscular Hgb 25.5 pg (27.0-31.0); Platelet Count 230 10^3/uL (130-400); Red Blood Cell Count 3.53 10^6/uL (4.70-6.10); Red Cell Dist. Width 16.7 % (11.5-14.5); White Blood Cell Count 8.7 10^3/uL (4.8-10.8)
[2024-04-28 08:07] LABS: ALT (SGPT) 12 U/L (0-50); AST (SGOT) 16 U/L (17-59); Albumin 3.4 g/dl (3.5-5.0); Alkaline Phosphatase 71 U/L (38-126); Blood Urea Nitrogen 28 mg/dl (9-20); Calcium 8.8 mg/dl (8.4-10.2); Carbon Dioxide 26 mmol/L (22-30); Chloride 103 mmol/L (98-107); Estimated Creatinine Clearance 26 ml/min; Glucose 91 mg/dl (70-99); Potassium 4.4 mmol/L (3.5-5.1); Sodium 140 mmol/L (135-145); Total Bilirubin 0.5 mg/dl (0.2-1.3); Total Protein 5.4 g/dl (6.3-8.2); eGFR 35.54
--- NOTE | 2024-04-28 08:46 | W.PN.CARDCBS ---
Addendum entered and electronically signed by Matt Maldonado MD 04/28/24 11:46:
I saw and examined the patient.
The Wind Development Director's note was reviewed and I agree with the note.
Comment:
GEN: No distress, awake, Ox3
HEENT: supple, anicteric, mmm
LUNGS: CTA, no wheezes/rales
CV: Irreg, S1/S2, 1/6 syst LSB, no gallop
ABD: soft, BS+, NT/ND
EXT: No edema
NEURO: Gross non-focal
SKIN: No rash
PLan:
Had episodes of hypotension overnight. Will stop Farxiga and lisinopril. Creatinine up to 1.8.
Continue Toprol XL 25 p.o. twice daily with Lasix.
Hemoglobin remained stable at 9.0 back on Xarelto.
No further bleeding.
Original Note:
Today's Communication / Plan
-
Stop lisinopril
Stop Farxiga
Continue pantoprazole
Continue Xarelto
Continue Lasix
Monitor creatinine
Monitor Hb
Impression / Plan
-
PCP: Dr. Jose Tavarez
Cardiology: Dr. Jaeger
Assessment: This is an 89-year-old male with past medical history of permanent A-fib on Xarelto, prior CABG, CKD stage III, GERD on chronic PPI who presented to ED with left-sided chest tightness, SOB, and weakness. Patient was noted to have a
Hb of 7.0 while in the ED and subsequently received 1 units of PRBC. Cardiology was consulted for possible bridging from Xarelto due to history of multiple strokes.
Impression:
Symptomatic blood loss iron deficiency anemia
Hb improving, currently 9.0
Permanent A-fib (on Xarelto on admission)
Presentation with chest tightness and SOB
HFrEF
CKD stage III
History of CABG
MVR
BPH
Plan:
Symptomatic blood loss iron deficiency anemia:
-Hb improving, currently 9.0 s/p 2U PRBC. Follow with serial CBC.
-EGD with no acute bleeding, no plans for colonoscopy.
-Continue Xarelto, Toprol and Lasix at this time.
-Lisinopril discontinued due to hypotension.
-IV Protonix, consider transition to oral
Asymptomatic hypotension:
-BP acutely dropped to 86/46 last p.m. after Lopressor 25 mg administration.
-Discontinue lisinopril given labile blood pressure and increasing creatinine.
-Given patient's age and comorbidities, I do not think patient is also a candidate for Farxiga-(recurrent UTIs, orthostatic hypotension, AIDE on CKD,...).
-Discontinue Farxiga with gentle GDMT.
Presentation with chest tightness and SOB
-Resolved
-Continue DuoNebs as needed
Permanent A-fib:
-Stable.
-Continue Xarelto 20 mg daily.
HFrEF
-proBNP noted. Reduced EF 25% on echo.
-Gentle GDMT with Toprol, and Lasix. Again patient notes a candidate for Farxiga and Aldactone. Will consider restarting lisinopril at a lower dose when BP recovers.
CKD stage III b
-Creatinine up, 1.8 today (baseline 1.6)
-Stop lisinopril and Farxiga, consider restarting lisinopril after creatinine and/or BP returns to baseline.
-Monitor while on Lasix.
History of CABG
MVR
Data:
EGD 04/26/2024:
No significant findings throughout the upper examined GI tract to explain patient's acute anemia and heme (+) stools
Small vascular blebs were found in the proximal esophagus.
Small-sized hiatal hernia without any erosions.
A few benign appearing gastric polyps. Left intact as endoscopically consistent with benign fundic gland polyps and all less than 1 cm
Otherwise, normal stomach on direct and retroflexion views.
Normal examined duodenum up to the fourth portion without any AVMs, ulcerations, polyps or masses
The examination was otherwise normal.
No specimens collected.
CXR 04/23/2024:
Left basilar opacification which could represent subsegmental atelectasis and/or pneumonia and small left pleural effusion.
Echo 04/23/2024:
Normal left ventricular chamber size. Mild concentric left ventricular hypertrophy. Severely reduced left ventricular systolic function. Global hypokinesis. LV ejection fraction is 25% visually. Stage III diastolic dysfunction suggestive of
restrictive filling pattern and increased filling pressures. Thickened mitral valve leaflets. Mitral annular calcification. There is at least moderate mitral regurgitation which may have been underestimated due to dense mitral annular
calcification.Indexed LA volume is severely abnormal (> 48 mL/m2).Trileaflet aortic valve. Thickened aortic valve with restricted leaflet motion. Mild to moderate aortic stenosis. Peak/mean gradients across the aortic valve are 11/5 mmHg. Using an
LVOT diameter of 1.9 cm, the aortic valve by the Continuity equation is calculated at 1.3 cm2. Mild aortic regurgitation. Tricuspid valve opens normally. Mild tricuspid regurgitation. Estimated pulmonary artery pressure of 52 mmHg. Assuming a right
atrial pressure of 15 mmHg. Dilated right atrium. Since echocardiogram March 2021 which was reviewed, ejection fraction is decreased from 50% to 25%. The right ventricle is dilated and hypokinetic with moderate pulmonary hypertension. Pleural
effusion is now seen.
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
Subjective
Date of Service: April 28, 2024
Patient was seen and examined sitting on the chair comfortably and eating breakfast. Reports no chest pain, shortness of breath, dizziness, palpitations, abdominal pain, fever or chills. Patient reported to have had drop in blood pressure last
night to 86/46 after administration of Lopressor. However patient was asymptomatic and the blood pressure currently holding up.
Objective
Labs:
04/28/24 06:23
04/28/24 06:23
Labs
Hgb 9.0 g/dL (13.0-18.0) L 04/28/24 06:23
Hct 28.6 % (39.0-52.0) L 04/28/24 06:23
Plt Count 230 10^3/uL (130-400) 04/28/24 06:23
PT 16.8 Sec (11.4-14.6) H 04/24/24 07:05
INR 1.35 04/24/24 07:05
APTT 31.6 Sec (23.4-35.0) 04/26/24 07:07
Sodium 140 mmol/L (135-145) 04/28/24 06:23
Potassium 4.4 mmol/L (3.5-5.1) 04/28/24 06:23
BUN 28 mg/dl (9-20) H 04/28/24 06:23
Creatinine 1.8 mg/dL (0.7-1.3) H 04/28/24 06:23
Glucose 91 mg/dl (70-99) 04/28/24 06:23
Troponins
04/25/24
12:10
Troponin I 0.018
Vital Signs and I&O:
Vital Signs
Temp Pulse Resp BP Pulse Ox
97.3 F 94 14 109/58 99
04/28/24 07:05 04/28/24 07:05 04/28/24 07:05 04/28/24 07:05 04/28/24 07:05
Vital Signs
Temp Pulse Resp BP Pulse Ox
97.3 F 94 14 109/58 99
04/28/24 07:05 04/28/24 07:05 04/28/24 07:05 04/28/24 07:05 04/28/24 07:05
Intake & Output
04/26/24 04/27/24 04/28/24 04/29/24
06:59 06:59 06:59 06:59
Intake Total 800 / 800 200 / 200 1200 / 1200
Output Total 375 / 375 500 / 500 800 / 800
Balance 425 / 425 -300 / -300 400 / 400
Physical Exam
Physical Exam
GEN: No distress, awake, Ox3
HEENT: supple, anicteric, mmm
LUNGS: CTA, no wheezes/rales
CV: Irreg, S1/S2, 1/6 syst LSB, no gallop
ABD: soft, BS+, NT/ND
EXT: No edema
NEURO: Gross non-focal
SKIN: No rash
[2024-04-28] MEDS: FLOMAX 0.4 MG PO ×2 (08:55→21:50)
[2024-04-28] MEDS: TYLENOL 650 MG PO (08:55)
[2024-04-28] MEDS: CYMBALTA DELAYED RELEASE 20 MG PO (08:55)
[2024-04-28] MEDS: TOPROL XL 25 MG PO ×2 (08:55→21:50)
[2024-04-28] MEDS: PROTONIX 40 MG PO (08:55)
[2024-04-28] MEDS: FARXIGA 10 MG PO (08:55)
[2024-04-28] MEDS: LASIX 20 MG PO (08:56)
[2024-04-28] MEDS: ZESTRIL PO (09:04)
[2024-04-28 11:00] VITALS: BP 107/58
--- NOTE | 2024-04-28 12:26 | W.PN.HOSP.TC ---
Addendum entered and electronically signed by Drake Miranda MD 04/28/24 15:17:
Acute On Chronic Blood Loss Anemia
Unable to determine if xarelto contributed to this
Original Note:
Today's Communication/Plan
-
stop farxiga, ACEI - monitor Scr
add finasteride
ppi daily
xarelto - monitor cbc
will need surgical eval for direct hernia repair outpatient
Assessment / Plan
Assessment / Plan
General: Well developed, well nourished in NAD.
Neck: Supple, no JVD, HJR, carotids +2 B/L, no bruits bilaterally.
Heart: Non displaced PMI, Irreg, no murmurs, No S3, S4, no rubs.
Lungs: Clear to auscultation bilaterally, no wheeze, rhonchi, rubs bilaterally,
normal expiratory phase.
Abdomen: Normal bowel sounds, soft, non-tender, non-distended.
Extremities: No clubbing, cyanosis or edema bilaterally.
Neuro: Grossly nonfocal, awake, alert and oriented x3.
Symptomatic Blood Loss Anemia
Iron Deficiency anemia
-Transfused 2 units PRBCs
-monitor cbc
-PPI IV daily
-Empiric IV hep ok at this juncture with recurrent embolic strokes
- EGD 04/26 - on acute bleeding - holding further c-scope as patient/son want to hold off - understands risks
-resume xarelto 04/26 - monitor cbc - stable
Shortness of breath
Pleural Effusion v atelectasis
Acute HFrEF and HFpEF
-EF 25%
-switch to PO lasix
-Stop farxiga, ACEI due to hypotension - Scr up to 1.8 today
Paroxysmal Atrial Fibrillation
-Continue diltiazem
-Xarelto
-Consult Cardiology
BPH
-Continue tamsulosin
-Add finasteride - has been having issues
-will need urology f/u
Large Direct Hernia
-will need surgical eval outpatient
-no evidence of compromised blood flow
CKD Stage III
-Creatinine at baseline
-Scr up to 1.8 today - ctm - stop ACEI, farxiga
Dementia
-Monitor for mood/behavior changes during hospitalization
Hx Coronary Artery Disease s/p CABG
Hx CVA
DVT Proph: xarelto
Code Status: DNR
Anticipated Discharge: 24 - 48 hours
Subjective/Interval History
-
Date of Service: April 28, 2024
episode of hypotension overnight;
Objective Data
-
Labs:
Laboratory Results
04/28/24
06:23
WBC 8.7
Hgb 9.0 L
Hct 28.6 L
Plt Count 230
Sodium 140
Potassium 4.4
Chloride 103
Carbon Dioxide 26
BUN 28 H
Creatinine 1.8 H
Glucose 91
Calcium 8.8
Total Bilirubin 0.5
AST 16 L
ALT 12
Alkaline Phosphatase 71
Vital Signs:
Vital Signs
Temp Pulse Resp BP Pulse Ox
97.6 F 71 16 107/58 99
04/28/24 11:00 04/28/24 11:00 04/28/24 11:00 04/28/24 11:00 04/28/24 11:00
I&O
04/27/24 04/28/24 04/29/24
06:59 06:59 06:59
Intake Total 200 / 200 1200 / 1200
Output Total 500 / 500 800 / 800
Balance -300 / -300 400 / 400
Review of Systems
-
History Source: Patient
All other systems: Not reviewed unless documented
Data Reviewed
-
Diagnostic Radiology: Image personally visualized and interpreted and Report Reviewed by me
Medical Tests (Nuc Med, Echo etc): Report Reviewed by me
Labs: Labs Reviewed by me
--- NOTE | 2024-04-28 12:30 | CM ---
Addendum entered by Lacey Tuttle RN 04/28/24 12:34:
IMM signed and placed on chart.
Original Note:
Reviewed the chart notes and left voice message at the [facility] to confirm when patient is able to return. CM continues to be available to patient/family and is monitoring medical plan for needs at discharge.
Plan: Discharge back to the [facility] with [facility].
[facility] fax: [phone]
[2024-04-28] MEDS: PROSCAR 5 MG PO (13:13)
[2024-04-28 15:05] VITALS: BP 95/46
[2024-04-28] MEDS: LIPITOR 40 MG PO (17:06)
[2024-04-28] MEDS: XARELTO 15 MG PO (17:06)
[2024-04-28 19:15] VITALS: BP 124/68
[2024-04-28 23:35] VITALS: BP 110/56
[2024-04-29] VITALS (8 sets, daily range): BP systolic 96–156; BP diastolic 43–64; PULSE 86–97; O2SAT 99–100; BMI 21.2
[2024-04-29 06:47] LABS: Hematocrit 28.1 % (39.0-52.0); Hemoglobin 9.1 g/dL (13.0-18.0); Mean Corp Hgb Conc. 32.4 g/dL (33.0-37.0); Mean Corpuscular Hgb 26.1 pg (27.0-31.0); Mean Corpuscular Volume 80.5 fL (80.0-94.0); Mean Platelet Volume 10.2 fL (7.4-10.4); Platelet Count 216 10^3/uL (130-400); Red Blood Cell Count 3.49 10^6/uL (4.70-6.10); Red Cell Dist. Width 16.4 % (11.5-14.5); White Blood Cell Count 9.6 10^3/uL (4.8-10.8)
[2024-04-29 07:13] LABS: ALT (SGPT) 12 U/L (0-50); AST (SGOT) 15 U/L (17-59); Albumin 3.4 g/dl (3.5-5.0); Alkaline Phosphatase 69 U/L (38-126); Blood Urea Nitrogen 29 mg/dl (9-20); Calcium 8.7 mg/dl (8.4-10.2); Carbon Dioxide 24 mmol/L (22-30); Chloride 100 mmol/L (98-107); Estimated Creatinine Clearance 29 ml/min; Glucose 95 mg/dl (70-99); Potassium 4.4 mmol/L (3.5-5.1); Sodium 136 mmol/L (135-145); Total Bilirubin 0.5 mg/dl (0.2-1.3); Total Protein 5.5 g/dl (6.3-8.2); eGFR 40.93
--- NOTE | 2024-04-29 08:34 | W.PN.CARDCBS ---
Addendum entered and electronically signed by Reg Gagnon, 04/29/24 15:26:
I saw and evaluated the patient. I reviewed the resident�s note and agree with findings and plan as documented in the resident�s note.
General: No acute distress, lethargic
Neck: Negative JVD
Heart: Irregularly irregular, Negative S3 positive S1/S2, Negative S4, No murmur
Lungs: CTA b/l, negative wheezes/rales/rhonchi
Abd: Positive BS, NT/ND, neg rebound/rigidity/guarding
Ext: Negative cyanosis/clubbing/edema
Neuro: nonfocal
Addendum entered and electronically signed by Reg Gagnon, 04/29/24 15:24:
I saw and examined the patient.
The Manager Pmo's note was reviewed and I agree with the note.
Comment:
Plan:
Bp stable off Lisinopril
Cont Toprol and oral lasix
Appears euvolemic
Perm aFib on Xarelto. H/H stable
Outpt cardiac follow up
Please recall if needed.
Original Note:
Today's Communication / Plan
-
No signs of bleeding
Continue Toprol XL 25 mg PO BID
Continue daily Lasix and monitor serum creatinine
Monitor hemoglobin
Impression / Plan
-
PCP: Dr. Jose Tavarez
Cardiology: Dr. Jaeger
Assessment: This is an 89-year-old male with past medical history of permanent A-fib on Xarelto, prior CABG, CKD stage III, GERD on chronic PPI who presented to ED with left-sided chest tightness, SOB, and weakness. Patient was noted to have a
Hb of 7.0 while in the ED and subsequently received 1 units of PRBC. Cardiology was consulted for possible bridging from Xarelto due to history of multiple strokes.
Impression:
Symptomatic blood loss iron deficiency anemia
Hb improving, currently 9.1
Permanent A-fib (on Xarelto on admission)
Presentation with chest tightness and SOB
Symptomatic hypotension
Resolved
HFrEF
CKD stage III
History of CABG
MVR
BPH
Plan:
Symptomatic blood loss iron deficiency anemia:
-Hb improving, currently 9.1 s/p 2U PRBC. Follow with serial CBC.
-EGD with no acute bleeding, no plans for colonoscopy.
-Continue Xarelto, Toprol and Lasix at this time.
-Continue Protonix 40 mg PO daily.
Asymptomatic hypotension:
-Resolved, most likely due to polypharmacy with Farxiga and lisinopril which were both discontinued.
-Continue Toprol XL 25 mg PO BID.
Presentation with chest tightness and SOB
-Resolved
-Continue DuoNebs as needed
Permanent A-fib:
-Stable.
-Continue Xarelto 15 mg daily.
HFrEF
-proBNP noted. Reduced EF 25% on echo.
-Gentle GDMT with Toprol, and Lasix.
-Continue to monitor blood pressure.
CKD stage III b
-Creatinine up, back to baseline 1.6 with discontinuation of lisinopril and Farxiga.
-Monitor creatinine while on Lasix.
History of CABG
MVR
Data:
EGD 04/26/2024:
No significant findings throughout the upper examined GI tract to explain patient's acute anemia and heme (+) stools
Small vascular blebs were found in the proximal esophagus.
Small-sized hiatal hernia without any erosions.
A few benign appearing gastric polyps. Left intact as endoscopically consistent with benign fundic gland polyps and all less than 1 cm
Otherwise, normal stomach on direct and retroflexion views.
Normal examined duodenum up to the fourth portion without any AVMs, ulcerations, polyps or masses
The examination was otherwise normal.
No specimens collected.
CXR 04/23/2024:
Left basilar opacification which could represent subsegmental atelectasis and/or pneumonia and small left pleural effusion.
Echo 04/23/2024:
Normal left ventricular chamber size. Mild concentric left ventricular hypertrophy. Severely reduced left ventricular systolic function. Global hypokinesis. LV ejection fraction is 25% visually. Stage III diastolic dysfunction suggestive of
restrictive filling pattern and increased filling pressures. Thickened mitral valve leaflets. Mitral annular calcification. There is at least moderate mitral regurgitation which may have been underestimated due to dense mitral annular
calcification.Indexed LA volume is severely abnormal (> 48 mL/m2).Trileaflet aortic valve. Thickened aortic valve with restricted leaflet motion. Mild to moderate aortic stenosis. Peak/mean gradients across the aortic valve are 11/5 mmHg. Using an
LVOT diameter of 1.9 cm, the aortic valve by the Continuity equation is calculated at 1.3 cm2. Mild aortic regurgitation. Tricuspid valve opens normally. Mild tricuspid regurgitation. Estimated pulmonary artery pressure of 52 mmHg. Assuming a right
atrial pressure of 15 mmHg. Dilated right atrium. Since echocardiogram March 2021 which was reviewed, ejection fraction is decreased from 50% to 25%. The right ventricle is dilated and hypokinetic with moderate pulmonary hypertension. Pleural
effusion is now seen.
Progress Note - Light Bulb Tester
Subjective
Date of Service: April 29, 2024
Patient was seen and examined by me this morning lying on his bed comfortably in no cardiopulmonary distress. His blood pressure was reported high overnight at 156/61. His blood pressure was rechecked after 15 minutes of his a.m. meds
administration and was 101/57, pulse 89, respiratory 16, afebrile, saturating at 96% on room air. He denies chest pain, shortness of breath, abdominal pain, fever, chills, and palpitations. He has no obvious signs of bleeding at this point.
Current meds include Toprol XL 25 mg PO BID, furosemide 20 mg PO daily, Xarelto 15 mg PO daily, Protonix 40 mg PO daily.
Hemoglobin is trending up to 9.1 and his creatinine is back to baseline 1.6.
Objective
Labs:
04/29/24 05:28
04/29/24 05:28
Labs
Hgb 9.1 g/dL (13.0-18.0) L 04/29/24 05:28
Hct 28.1 % (39.0-52.0) L 04/29/24 05:28
Plt Count 216 10^3/uL (130-400) 04/29/24 05:28
PT 16.8 Sec (11.4-14.6) H 04/24/24 07:05
INR 1.35 04/24/24 07:05
APTT 31.6 Sec (23.4-35.0) 04/26/24 07:07
Sodium 136 mmol/L (135-145) 04/29/24 05:28
Potassium 4.4 mmol/L (3.5-5.1) 04/29/24 05:28
BUN 29 mg/dl (9-20) H 04/29/24 05:28
Creatinine 1.6 mg/dL (0.7-1.3) H 04/29/24 05:28
Glucose 95 mg/dl (70-99) 04/29/24 05:28
Vital Signs and I&O:
Vital Signs
Temp Pulse Resp BP Pulse Ox
98.2 F 88 16 156/61 95
04/29/24 07:00 04/29/24 07:00 04/29/24 07:00 04/29/24 07:00 04/29/24 07:00
Vital Signs
Temp Pulse Resp BP Pulse Ox
98.2 F 88 16 156/61 95
04/29/24 07:00 04/29/24 07:00 04/29/24 07:00 04/29/24 07:00 04/29/24 07:00
Intake & Output
04/27/24 04/28/24 04/29/24 04/30/24
06:59 06:59 06:59 06:59
Intake Total 200 / 200 1200 / 1200 980 / 980
Output Total 500 / 500 800 / 800 625 / 625
Balance -300 / -300 400 / 400 355 / 355
Physical Exam
Physical Exam
GEN: No distress, awake, Ox3
HEENT: supple, anicteric, mmm
LUNGS: CTA, no wheezes/rales
CV: Irreg, S1/S2, 1/6 syst LSB, no gallop
ABD: soft, BS+, NT/ND
EXT: No edema
NEURO: Gross non-focal
SKIN: No rash
[2024-04-29] MEDS: CYMBALTA DELAYED RELEASE 20 MG PO (08:39)
[2024-04-29] MEDS: FLOMAX 0.4 MG PO ×2 (08:39→21:45)
[2024-04-29] MEDS: PROTONIX 40 MG PO (08:39)
[2024-04-29] MEDS: LASIX 20 MG PO (08:39)
[2024-04-29] MEDS: PROSCAR 5 MG PO (08:39)
[2024-04-29] MEDS: TOPROL XL 25 MG PO ×2 (08:40→21:46)
--- NOTE | 2024-04-29 09:41 | W.PN.HOSP.TC ---
Today's Communication/Plan
-
asking PT and OT to evaluate again today
approaching DC
follow up cardiology recs
Assessment / Plan
Assessment / Plan
General: Well developed, well nourished in NAD.
Neck: Supple, no JVD, HJR, carotids +2 B/L, no bruits bilaterally.
Heart: Non displaced PMI, Irreg, no murmurs, No S3, S4, no rubs.
Lungs: Clear to auscultation bilaterally, no wheeze, rhonchi, rubs bilaterally,
normal expiratory phase.
Abdomen: Normal bowel sounds, soft, non-tender, non-distended.
Extremities: No clubbing, cyanosis or edema bilaterally.
Neuro: Grossly nonfocal, awake, alert and oriented x3.
Symptomatic Blood Loss Anemia
Iron Deficiency anemia
-Transfused 2 units PRBCs
-EGD 04/26 - on source for acute bleeding - holding further c-scope as patient/son want to hold off - understands risks
-resume xarelto 04/26
-Hg has been stable
-possible DC today after seen by PT
Shortness of breath
Pleural Effusion v atelectasis
Acute HFrEF and HFpEF
-EF 25%
-switch to PO lasix
-Stop farxiga given CKD and hx UTI, stop ACEI due to hypotension
Paroxysmal Atrial Fibrillation
-Diltiazem stopped, replaced with Metoprolol
-Xarelto
-Consult Cardiology
BPH
-Continue tamsulosin
-Add finasteride - has been having issues
-will need urology f/u
Large Direct Hernia
-will need surgical eval outpatient
-no evidence of compromised blood flow
CKD Stage III
-Creatinine at baseline
-ACEI held; creatinine improved to 1.6
Dementia
-Monitor for mood/behavior changes during hospitalization
Hx Coronary Artery Disease s/p CABG
Hx CVA
DVT Proph: xarelto
Code Status: DNR
Anticipated Discharge: Within 24 hours
Subjective/Interval History
-
Date of Service: April 29, 2024
awoken from sleep, feeling well
Objective Data
-
Labs:
Laboratory Results
04/29/24
05:28
WBC 9.6
Hgb 9.1 L
Hct 28.1 L
Plt Count 216
Sodium 136
Potassium 4.4
Chloride 100
Carbon Dioxide 24
BUN 29 H
Creatinine 1.6 H
Glucose 95
Calcium 8.7
Total Bilirubin 0.5
AST 15 L
ALT 12
Alkaline Phosphatase 69
Vital Signs:
Vital Signs
Temp Pulse Resp BP Pulse Ox
98.2 F 88 16 156/61 95
04/29/24 07:00 04/29/24 08:39 04/29/24 07:00 04/29/24 08:39 04/29/24 07:00
I&O
04/28/24 04/29/24 04/30/24
06:59 06:59 06:59
Intake Total 1200 / 1200 980 / 980
Output Total 800 / 800 625 / 625
Balance 400 / 400 355 / 355
Review of Systems
-
History Source: Patient
All other systems: Reviewed and negative
Data Reviewed
-
Diagnostic Radiology: Report Reviewed by me
Labs: Labs Reviewed by me
--- NOTE | 2024-04-29 12:39 | CM ---
Addendum entered by Roxanna Perdomo 04/29/24 13:02:
As per Lupe from [facility] ([phone]) Cost of Eliquis 2.5mg BID for 30 days is $[address] Del Valle
Notified son, will give coupon
Original Note:
Spoke with Svetlana at [facility] in [place].
Updated on tentative d/c tomorrow & that son prefers going back to facility with [facility]. updated referral in [facility].
case management consult completed for Eliquis 2.5 mg BID - left message with pharmacy.
Will tt Dr. Del Valle
PLAN: Discharge tentative tomorrow back to [facility] with [facility]
Ambulance forms on chart. Time TBD
[facility]
Report #: [phone] (ask for Svetlana or charge nurse)
Fax #: [phone]
[2024-04-29] MEDS: LIPITOR 40 MG PO (17:05)
[2024-04-29] MEDS: XARELTO 15 MG PO (17:05)
[2024-04-30 02:50] VITALS: BP 102/50
[2024-04-30 05:12] VITALS: BMI 21.1
[2024-04-30 07:10] VITALS: BP 100/49
--- NOTE | 2024-04-30 08:41 | W.PN.HOSP.TC ---
Today's Communication/Plan
-
OK for DC back to [facility] today
Assessment / Plan
Assessment / Plan
General: Well developed, well nourished in NAD.
Neck: Supple, no JVD, HJR, carotids +2 B/L, no bruits bilaterally.
Heart: Non displaced PMI, Irreg, no murmurs, No S3, S4, no rubs.
Lungs: Clear to auscultation bilaterally, no wheeze, rhonchi, rubs bilaterally,
normal expiratory phase.
Abdomen: Normal bowel sounds, soft, non-tender, non-distended.
Extremities: No clubbing, cyanosis or edema bilaterally.
Neuro: Grossly nonfocal, awake, alert and oriented x3.
Symptomatic Blood Loss Anemia
Iron Deficiency anemia
-Transfused 2 units PRBCs
-EGD 04/26 - no source for acute bleeding - holding further c-scope as patient/son want to hold off - understands risks
-resume xarelto 04/26
-Hg has been stable
-OK for DC today
Shortness of breath
Pleural Effusion v atelectasis
Acute HFrEF and HFpEF
-EF 25%
-switch to PO lasix
-Stop farxiga given CKD and hx UTI, stop ACEI due to hypotension
Paroxysmal Atrial Fibrillation
-Diltiazem stopped, replaced with Metoprolol
-Xarelto
-appreciate cardiology consult
BPH
-Continue tamsulosin
-Add finasteride - has been having issues
-will need urology f/u
Large Direct Hernia
-will need surgical eval outpatient
-no evidence of compromised blood flow
CKD Stage III
-Creatinine at baseline
-ACEI held; creatinine improved to 1.6
Dementia
-Monitor for mood/behavior changes during hospitalization
Hx Coronary Artery Disease s/p CABG
Hx CVA
DVT Proph: xarelto
Code Status: DNR
Anticipated Discharge: Today
Subjective/Interval History
-
Date of Service: April 30, 2024
sitting up in chair
ate breakfast
no new complaints
Objective Data
-
Labs:
Laboratory Results
04/30/24
05:33
Hgb 9.0 L
Vital Signs:
Vital Signs
Temp Pulse Resp BP Pulse Ox
97.8 F 92 17 100/49 96
04/30/24 07:10 04/30/24 07:10 04/30/24 07:10 04/30/24 07:10 04/30/24 07:10
I&O
04/29/24 04/30/24 05/01/24
06:59 06:59 06:59
Intake Total 980 / 980 840 / 840
Output Total 625 / 625 270 / 270
Balance 355 / 355 570 / 570
Review of Systems
-
Unable to obtain full review of systems at this time due to: Dementia
History Source: Patient
Data Reviewed
-
Diagnostic Radiology: Report Reviewed by me
Labs: Labs Reviewed by me
--- NOTE | 2024-04-30 08:55 | W.DS.TRANS ---
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
-
Discharge Instructions:
Sleep Apnea Risk Intermediate
Discharge Diagnosis/Procedures symptomatic anemia
Diet 2 Gram Sodium,Restrict fluids to 48 oz
Activity As tolerated
Driving Restrictions No driving
Bathing Restrictions None
Blood Work CBC and BMP in one week
Other Services VN,PT,OT
Specialty Instructions Weigh Daily
Instructions: *DCA Heart Failure Instructions
Stand-Alone Forms:
Changes to Home Medications: Yes
Discharge Medications:
DC Medications w/original date entered in [facility]
tamsulosin 0.4 mg capsule 0.4 mg PO BID Urinary issue 06/16/17
atorvastatin 40 mg tablet 40 mg PO QPM High cholesterol 11/12/17
acetaminophen 500 mg tablet (Tylenol Extra Strength) 1,000 mg PO QPM 08/16/19
Soothe Lubricant Eye Drops 1 drp BOTH EYES DAILY Eye condition 04/07/21
fluticasone propionate 50 mcg/actuation nasal spray,suspension 1 spray intranasal DAILY Allergies 04/07/21
nystatin 100,000 unit/gram topical powder (Nyamyc) 1 applic topical PRN PRN skin irritation 04/07/21
duloxetine 20 mg capsule,delayed release sprinkle 20 mg PO DAILY 03/01/22
finasteride 5 mg tablet 5 mg PO DAILY #30 tabs 04/30/24
furosemide 20 mg tablet 20 mg PO DAILY #30 tabs 04/30/24
metoprolol succinate 25 mg tablet,extended release 24 hr 25 mg PO BID #60 tabs 04/30/24
pantoprazole 40 mg tablet,delayed release 40 mg PO DAILY #90 tabs 04/30/24
rivaroxaban 15 mg tablet (Xarelto) 15 mg PO QPM #30 tabs 04/30/24
Home Medication Changes
Stop Diltiazem
Stop Prilosec, Replaced with Protonix daily
Xarelto is decreased from 20mg to 15mg
You are newly started on Lasix to help keep extra fluid off
You are newly started on Finasteride to help with enlarged prostate issues
Pending Results: No
[2024-04-30] MEDS: PROTONIX 40 MG PO (08:57)
[2024-04-30] MEDS: CYMBALTA DELAYED RELEASE 20 MG PO (08:57)
[2024-04-30] MEDS: FLOMAX 0.4 MG PO (08:57)
[2024-04-30] MEDS: LASIX PO (08:58)
[2024-04-30] MEDS: PROSCAR 5 MG PO (08:59)
[2024-04-30] MEDS: TOPROL XL 25 MG PO (08:59)
--- NOTE | 2024-04-30 10:22 | CM ---
Called Charlene at [facility].
Verified that the Pharmacy is [facility] - updated in [employer]
tt Dr. Del Valle to send scripts to [facility] & also enter case management consult for VN
PLAN: Discharge to [facility].
Ambulance forms on chart. Time TBD
[facility]
Report #: [phone] (ask for Svetlana or charge nurse)
Fax #: [phone]
[facility] FAX #: [phone]
[2024-04-30 11:35] VITALS: BP 111/65
--- NOTE | 2024-04-30 12:40 | W.DCSUMMARY ---
Discharge Summary
Discharge Data
Date of Admission: 04/22/24
Date of Discharge: 04/30/24
-
Pending Results: No
Hospital Course
Discharging Physician : Dr. Antonina Del Valle
Disposition : Memory Care
Primary care physician : Dr. Jose Tavarez
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
Hospital Course :
Mr. Cuco Oliva is a 89 yo man with hx atrial fibrillation on Xarelto, CKD III, s/p mitral valve repair, CAD s/p CABG, CVA presents to the ER with shortness of breath and chest pressure. Triage vitals stable. Labs significant for Hg 7.0.
Troponin negative.
Patient was admitted to medicine with GI consulting. He received 2 units PRBC with improvement in Hg. His Xarelto was held and bridged with IV heparin gtt given hx embolic CVA. He underwent EGD on 04/26 without source of acute bleeding (see
below). Prep attempted but patient couldn't tolerate and per further discussions with son, decision made to avoid colonoscopy for now in setting of advanced age and comorbidities. His Xarelto was resumed with stable Hg, will obtain repeat CBC in
one week.
Patient's shortness of breath was further work-ed up with echo showing new cardiomyopathy, EF 25%. He was diuresed during hospital stay. Changes to medications include addition of lasix 20mg PO QD, stopping Diltiazem and starting Metop XL BID.
Farxiga and HECTOR-I not prescribed at [facility] given renal insufficiency. His Xarelto dosing is decreased to 15 mg given creatinine clearance. Plan for BMP in one week.
Given BPH symptoms, he is newly started on Finasteride, referred to Urology at [facility].
Of note, patient has a large compressible hernia - to be monitored as outpatient; risks of surgery likely outweigh benefits.
Time spent on discharge was 35 minutes.
Important imaging findings :
TTE 04/23/24
CONCLUSIONS
Normal left ventricular chamber size. Mild concentric left ventricular
hypertrophy. Severely reduced left ventricular systolic function. Global
hypokinesis. LV ejection fraction is 25% visually. Stage III diastolic
dysfunction suggestive of restrictive filling pattern and increased filling
pressures.
Thickened mitral valve leaflets. Mitral annular calcification. There is at
least moderate mitral regurgitation which may have been underestimated due to
dense mitral annular calcification.
Indexed LA volume is severely abnormal (> 48 mL/m2).
Trileaflet aortic valve. Thickened aortic valve with restricted leaflet motion.
Mild to moderate aortic stenosis. Peak/mean gradients across the aortic valve
are 11/5 mmHg. Using an LVOT diameter of 1.9 cm, the aortic valve by the
Continuity equation is calculated at 1.3 cm2. Mild aortic regurgitation.
Tricuspid valve opens normally. Mild tricuspid regurgitation. Estimated
pulmonary artery pressure of 52 mmHg. Assuming a right atrial pressure of 15
mmHg.
Dilated right atrium.
Since echocardiogram March 2021 which was reviewed, ejection fraction is
decreased from 50% to 25%. The right ventricle is dilated and hypokinetic with
moderate pulmonary hypertension. Pleural effusion is now seen.
Procedure findings :
EGD 04/26/24
Impression: - No significant findings throughout the upper
examined GI tract to explain patient's acute anemia
and heme (+) stools
- Small vascular blebs were found in the proximal
esophagus.
- Small-sized hiatal hernia without any erosions.
- A few benign appearing gastric polyps. Left intact
as endoscopically consistent with benign fundic gland
polyps and all less than 1 cm
- Otherwise, normal stomach on direct and retroflexion
views.
- Normal examined duodenum up to the fourth portion
without any AVMs, ulcerations, polyps or masses
- The examination was otherwise normal.
- No specimens collected.
Discharge Plan
-
Patient Disposition: Group Home/SNF
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
Diet: 2 Gram Sodium and Restrict fluids to 48 oz
Activity: As tolerated
Driving Restrictions: No driving
Bathing Restrictions: None
Blood Work: CBC and BMP in one week
Other Services: VN, PT and OT
Specialty Instructions: Weigh Daily- Call MD for wt gain/loss 3 lbs overnight/5 lbs in 1 week
Instructions: *DCA Heart Failure Instructions
Referrals:
Jose Tavarez, [Family Provider] - in less than 1 week
Rah Mireles MD [Active] - in two to four weeks
Alexa Ramirez PA-C [Specified Professional Personl] - 05/10/24 12:40 pm (You have a cardiology follow up appointment at the [place] office with Dr. Jaeger's physician recycling assistant, Alexa. Please call with questions. )
Additional Discharge Medication Instructions: Stop Diltiazem
Stop Prilosec, Replaced with Protonix daily
Xarelto is decreased from 20mg to 15mg
You are newly started on Lasix to help keep extra fluid off
You are newly started on Finasteride to help with enlarged prostate issues
Prescriptions:
New
pantoprazole 40 mg Tablet,Delayed Release (Dr/Ec)
40 mg PO DAILY Qty: 90 0RF
furosemide 20 mg Tablet
20 mg PO DAILY Qty: 30 0RF
metoprolol succinate 25 mg Tablet Extended Release 24 Hr
25 mg PO BID Qty: 60 0RF
finasteride 5 mg Tablet
5 mg PO DAILY Qty: 30 0RF
Xarelto 15 mg Tablet
15 mg PO QPM Qty: 30 0RF
Continued
tamsulosin 0.4 MG capsule
0.4 mg PO BID
atorvastatin 40 MG tablet
40 mg PO QPM
acetaminophen [Tylenol Extra Strength] 500 MG tablet
1,000 mg PO QPM
nystatin [Nyamyc] 60 GM powder
1 applic topical PRN PRN (Reason: skin irritation)
fluticasone propionate 1 SPRAY spray,suspension
1 spray intranasal DAILY
Soothe Lubricant Eye Drops
1 drp BOTH EYES DAILY
duloxetine 20 mg Capsule, Delayed Rel Sprinkle
20 mg PO DAILY
Discontinued
omeprazole 20 mg Capsule,Delayed Release(Dr/Ec)
20 mg PO DAILY
Xarelto 20 mg Tablet
20 mg PO QPM
diltiazem HCl 240 MG capsule,extended release 24hr
360 mg PO DAILY
Discharge Orders:
Discharge Patient (As Directed); Ordered 04/30/24
Ordered By: Antonina Del Valle
Discharge Date and Time
Discharge Date/Time: 04/30/24 11:50
Print Language: MACEDONIAN
== END 2024-04-30 11:50 | DRG 314 ==
LOC: 2 NORTH 22:34
PROVIDERS: Internal Medicine; Nurse Practitioner Adult Health; Nurse Practitioner Family; Physician Assistant Medical; Student in an Organized Health Care Education/Training Program; ADMITTING PHYSICIAN Hospitalist; ATTENDING PHYSICIAN Student in an Organized Health Care Education/Training Program; EMERGENCY PHYSICIAN Emergency Medicine; FAMILY PHYSICIAN Internal Medicine; OTHER PHYSICIAN Internal Medicine Cardiovascular Disease; OTHER PHYSICIAN Student in an Organized Health Care Education/Training Program
PROC: 30233N1 Transfusion of Nonautologous Red Blood Cells into Peripheral Vein, Percutaneous Approach (ICD-10-PCS; 2024-04-23)
PROC: 0DJ08ZZ Inspection of Upper Intestinal Tract, Via Natural or Artificial Opening Endoscopic (ICD-10-PCS; 2024-04-26)
DX: I42.9 Cardiomyopathy, unspecified (principal); I50.41 Acute combined systolic (congestive) and diastolic (congestive) heart failure; D62 Acute posthemorrhagic anemia; I48.21 Permanent atrial fibrillation; K92.1 Melena; I13.0 Hypertensive heart and chronic kidney disease with heart failure and stage 1 through stage 4 chronic kidney disease, or unspecified chronic kidney disease; Z66 Do not resuscitate; I25.10 Atherosclerotic heart disease of native coronary artery without angina pectoris; F03.90 Unspecified dementia, unspecified severity, without behavioral disturbance, psychotic disturbance, mood disturbance, and anxiety; N40.0 Benign prostatic hyperplasia without lower urinary tract symptoms; K44.9 Diaphragmatic hernia without obstruction or gangrene; K31.7 Polyp of stomach and duodenum; I95.9 Hypotension, unspecified; N18.32 Chronic kidney disease, stage 3b; E78.00 Pure hypercholesterolemia, unspecified; I08.0 Rheumatic disorders of both mitral and aortic valves; K21.9 Gastro-esophageal reflux disease without esophagitis; Z95.1 Presence of aortocoronary bypass graft; Z86.73 Personal history of transient ischemic attack (TIA), and cerebral infarction without residual deficits; Z79.01 Long term (current) use of anticoagulants; Z79.899 Other long term (current) drug therapy; Z85.820 Personal history of malignant melanoma of skin; Z86.011 Personal history of benign neoplasm of the brain
CPT/HCPCS: 71046; 80048; 80053; 82607; 82728; 82746; 83540; 83550; 83880; 84484; 85018; 85025; 85027; 85610; 85730; 86850; 86900; 86901; 86920; 93005; 93306; 94640; 97162; 97166; 97530; 97535; 99291; P9016; Q9950

== ENCOUNTER 2024-05-06 16:19 | Emergency (ER) | payer OTHER, SELFPAY ==
[2024-05-06 16:20] VITALS: BMI 25.7
--- NOTE | 2024-05-06 16:24 | ED.GENMED ---
History of Present Illness
General
Chief Complaint: Weakness
Time Seen by Provider: 05/06/24 16:23
History of Present Illness
History of Present Illness:
HPI: I spoke to EMS for history as the patient is a poor historian. The patient was taken out for lunch by his son. There was some concern and report of shortness of breath however the patient currently denies any shortness of breath. His room
air sats are 100%. EMS notes that his heart rate was in the 40s and blood pressure was in the 70s. They did give him a milligram of atropine. The patient tells me that his weakness started today. I reviewed some notes which indicate that the
patient was started on Lasix and diltiazem was discontinued but he was switched to metoprolol.
EXAM:
GENERAL: The patient appears generally weak and debilitated
HEENT: Slightly dry oral mucosa
CARDIOVASCULAR: No murmurs, normal heart rate, irregular rhythm, No chest wall tenderness
PULMONARY: No respiratory distress, breath sounds are clear and equal
ABDOMEN: Soft with no peritoneal signs, no tenderness
NEUROLOGIC: Fair strength all extremities, no coordination deficits
PSYCHIATRIC: Limited insight and judgment, is a poor historian
EXTREMITIES: Nontender, no edema, moves all extremities equally
SKIN: No rash, no lesions
TIME OF INITIAL ENCOUNTER: 4:20 PM
NUMBER AND COMPLEXITY OF PROBLEMS ADDRESSED AT THE ENCOUNTER
� Chronic conditions affecting care: Dementia, A-fib on Xarelto, CHF, high blood pressure, hyperlipidemia, CAD
� Acute Exacerbation and/or Progression of Chronic Illness: This is an acute problem
� Differential Diagnosis includes: Dysrhythmia, bradycardia, sepsis, viral syndrome, dehydration, AIDE, medication related
AMOUNT AND/OR COMPLEXITY OF DATA TO BE REVIEWED AND ANALYZED
� I performed an independent evaluation of and my interpretation is:
EKG: Atrial fibs/flutter, ventricular rate of 64, PVCs
CT:
X-rays:
Laboratory Studies: White count 7.3, hemoglobin 8.7, creatinine 1.9 (1 week ago was 1.6), bicarb 19
Other:
� Review of other/old records: Records from this facility indicate that he was started on Lasix recently and diltiazem had been stopped. The patient was here with acute blood loss anemia admitted from 04/22/2024 through 04/30/2024
and at that time had a new diagnosis of cardiomyopathy with an EF of 25%. He had a hemoglobin of 7.0 at the time and received 2 units of blood and Xarelto was held with bridge to IV heparin EGD did not show any signs of bleeding. Xarelto was
resumed.
� Clinical information was obtained by an independent historian: I spoke to EMS upon arrival
� Prescriptions/Medications Considered but not given:
� Further testing considered but not performed:
RISK OF COMPLICATIONS AND/OR MORBIDITY OR MORTALITY OF PATIENT MANAGEMENT
� Social determinants of health affecting care: Currently resides at [facility]
� Discussion with other providers:
� Escalation of care including admission/observation vs risk of discharge considered: The patient was hypotensive for EMS and upon arrival and bicarb was low and creatinine was slightly worse. He was given IV fluids. Initial
systolics were low for EMS in the 70s but after a liter of fluid on reassessment at 6:30 PM, his systolic blood pressure is now 110. I recommend that he decrease the Toprol dosing to once a day from twice daily and also to stop the Lasix. I
offered and considered keeping the patient in the hospital however the patient son does not want aggressive measures and feels it would be most appropriate to do back to [facility].
Past History
Past History
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
ED Past Surgical History: Cardiac (CABG, Mitral valve repair) and Other (Patient has had angioplasty x4, Ventral hernia)
Social History
Tobacco: Smoker
Alcohol: Daily ([place] one daily)
Drug: None
Personal:
Living: group home
Employment: Retired
Family History
Family History: Hypertension
Phy Exam
Physical Exam
Physical Exam:
See HPI
Course
Orders/Labs/Results
Orders:
Orders
05/06/24 16:24
ECG [Electrocardiogram (*1)] Urgent
Reason for Study: Shortness of Breath
EKG- Treatment ONCE
0.9% Sodium Chloride 500 ml [Nss] 500 ml IV BOLUS
05/06/24 16:28
Complete Blood Count/With Diff Urgent
Comprehensive Metabolic Panel Urgent
Magnesium Urgent
TSH Reflex To Free T4 Urgent
Abnormal Lab Results
05/06/24
16:28
RBC 3.39 L 10^6/uL
(4.70-6.10)
Hgb 8.7 L g/dL
(13.0-18.0)
Hct 27.6 L %
(39.0-52.0)
MCH 25.7 L pg
(27.0-31.0)
MCHC 31.5 L g/dL
(33.0-37.0)
RDW 16.5 H %
(11.5-14.5)
Absolute Monos (auto) 0.9 H 10^3/uL
(0.1-0.6)
Lymphocytes % 17.2 L %
(20.5-51.1)
Monocytes % 11.6 H %
(1.7-9.3)
Carbon Dioxide 19 L mmol/L
(22-30)
BUN 35 H mg/dl
(9-20)
Creatinine 1.9 H mg/dL
(0.7-1.3)
Glucose 103 H mg/dl
(70-99)
AST 14 L U/L
(17-59)
Total Protein 5.3 L g/dl
(6.3-8.2)
Albumin 3.3 L g/dl
(3.5-5.0)
05/06/24 16:28
05/06/24 16:28
Vital Signs
Initial and Last Documented VS:
Initial Vital Signs
Temp Pulse Resp Pulse Ox
98.3 F 65 16 100
05/06/24 16:20 05/06/24 16:20 05/06/24 16:20 05/06/24 16:20
Last Documented Vital Signs
Temp Pulse Resp BP Pulse Ox
98.3 F 48 17 110/55 92
05/06/24 16:20 05/06/24 18:24 05/06/24 18:24 05/06/24 18:24 05/06/24 18:24
*Critical Care Note
Total Time (30-74mins, 75-104mins- exclusive of procedures): Not Applicable
ED Attending Note
-
Portions of this chart may have been created with voice recognition software.� Occasional wrong word or��sound alike� substitutions may have occurred due to the inherent limitations of voice recognition software.
Discharge Plan
Departure
Patient Disposition: Home (Routine Discharge)
Date of Disposition: 05/06/24
Time of Disposition: 18:28
Patient with high blood pressure during this ER visit?: Yes
Discharge Problem:
Weakness
Instructions: Generalized Weakness (DC)
Prescriptions:
No Action
tamsulosin 0.4 MG capsule
0.4 mg PO BID
atorvastatin 40 MG tablet
40 mg PO HS
acetaminophen [Tylenol Extra Strength] 500 MG tablet
1,000 mg PO HS
fluticasone propionate 1 SPRAY spray,suspension
1 spray intranasal DAILY
duloxetine 20 mg Capsule, Delayed Rel Sprinkle
20 mg PO DAILY
diltiazem HCl 360 mg Capsule,Extended Release 24 Hr
360 mg PO DAILY
magnesium hydroxide [Milk of Magnesia] 400 mg/5 mL Suspension
30 ml PO DAILYPRN PRN (Reason: constipation)
nystatin [Nystop] 100,000 unit/gram Powder
1 applic TOPICAL BIDPRN PRN (Reason: rash)
CertaVite Senior 0.4 mg-300 mcg- 250 mcg Tablet
1 tab PO DAILY
omeprazole 20 mg Tablet,Delayed Release (Dr/Ec)
20 mg PO DAILY
propylene glycol-glycerin 0.6-0.6 % Dropperette
1 drp ophthalmic (eye) DAILY
Patient Comments:
05/06/24: both eyes
Xarelto 20 mg Tablet
20 mg PO HS
Referrals:
UNKNOWN - PT DOES,NOT KNOW [Family Provider] -
Activity Restrictions/Additional Instructions:
Heart rate was low and blood pressure was also low. I reviewed his discharge summary medications. It was noted that he was on metoprolol succinate 25 mg 1 tab twice a day. I recommend that he only takes 1 tab once a day at the most�heart rate was
in the 40s and EMS gave atropine earlier.. I also recommend to hold the furosemide. Follow-up with cardiology. His kidney function was slightly worse. Blood pressure was very low for EMS with systolic readings in the 70s. After a liter of IV
fluid is now 110. I spoke to son he did not want aggressive measures. Return here if worse or other concerns.
Interventions
Interventions:
*Risk Screen - Suicide Last Done: 05/06/24 16:25
*General Assessment Last Done: 05/06/24 16:25
*Neglect/Abuse Screening Last Done: 05/06/24 16:25
*ED COVID-19 Vaccine History Last Done: 05/06/24 16:25
ED- Cardiac Assessment Last Done: 05/06/24 16:30
ED- Neurological Assessment Last Done: 05/06/24 16:30
ED- Pulmonary Assessment Last Done: 05/06/24 16:30
Discharge Date and Time
Print Language: HONG KONGER
[2024-05-06 16:28] VITALS: BP 93/51
[2024-05-06 16:29] VITALS: BP 93/51
[2024-05-06] MEDS: NSS 500 IV (16:30)
[2024-05-06 16:37] LABS: % Basophils 0.8 % (0-2); % Eosinophils 2.5 % (0-6); % Immature Granulocytes 0.3 % (0-0.5); % Lymphocytes 17.2 % (20.5-51.1); % Monocytes 11.6 % (1.7-9.3); % Neutrophils 67.6 % (42.2-75.2); Absolute Basophils 0.1 10^3/uL (0-0.2); Absolute Eosinophils 0.2 10^3/uL (0-0.7); Absolute Lymphocytes 1.3 10^3/uL (1.2-3.4); Absolute Monocytes 0.9 10^3/uL (0.1-0.6); Absolute Neutrophils 4.9 10^3/uL (1.4-6.5); Hematocrit 27.6 % (39.0-52.0); Hemoglobin 8.7 g/dL (13.0-18.0); Mean Corp Hgb Conc. 31.5 g/dL (33.0-37.0); Mean Corpuscular Hgb 25.7 pg (27.0-31.0); Mean Corpuscular Volume 81.4 fL (80.0-94.0); Mean Platelet Volume 9.6 fL (7.4-10.4); Nucleated Red Blood Cells % 0 % (-); Platelet Count 212 10^3/uL (130-400); Red Blood Cell Count 3.39 10^6/uL (4.70-6.10); Red Cell Dist. Width 16.5 % (11.5-14.5); White Blood Cell Count 7.3 10^3/uL (4.8-10.8)
[2024-05-06 16:51] LABS: ALT (SGPT) 12 U/L (0-50); AST (SGOT) 14 U/L (17-59); Albumin 3.3 g/dl (3.5-5.0); Alkaline Phosphatase 62 U/L (38-126); Blood Urea Nitrogen 35 mg/dl (9-20); Calcium 8.5 mg/dl (8.4-10.2); Carbon Dioxide 19 mmol/L (22-30); Chloride 106 mmol/L (98-107); Estimated Creatinine Clearance 23 ml/min; Glucose 103 mg/dl (70-99); Magnesium 1.9 mg/dl (1.6-2.3); Potassium 4.4 mmol/L (3.5-5.1); Sodium 140 mmol/L (135-145); Total Bilirubin 0.3 mg/dl (0.2-1.3); Total Protein 5.3 g/dl (6.3-8.2)
[2024-05-06 17:00] VITALS: BP 97/55
[2024-05-06 18:00] VITALS: BP 96/53
[2024-05-06 18:13] LABS: TSH Reflex To Free T4 1.96 uIU/ml (0.47-4.68)
[2024-05-06 18:24] VITALS: BP 110/55
== END 2024-05-06 18:49 | disposition home or self-care (01) ==
LOC: EMR 16:19
PROVIDERS: EMERGENCY PHYSICIAN Emergency Medicine
DX: R53.1 Weakness (principal); I12.9 Hypertensive chronic kidney disease with stage 1 through stage 4 chronic kidney disease, or unspecified chronic kidney disease; N18.9 Chronic kidney disease, unspecified; I48.20 Chronic atrial fibrillation, unspecified; K21.9 Gastro-esophageal reflux disease without esophagitis; I42.9 Cardiomyopathy, unspecified; I48.92 Unspecified atrial flutter; E78.00 Pure hypercholesterolemia, unspecified; M10.9 Gout, unspecified; F17.200 Nicotine dependence, unspecified, uncomplicated; I25.2 Old myocardial infarction; Z86.73 Personal history of transient ischemic attack (TIA), and cerebral infarction without residual deficits; Z95.1 Presence of aortocoronary bypass graft
CPT/HCPCS: 99284; 80053; 83735; 84443; 85025; 93005

== ENCOUNTER 2024-05-09 03:06 | Emergency (ER) | payer OTHER, SELFPAY ==
[2024-05-09 03:08] VITALS: BP 121/85
[2024-05-09] MEDS: DUONEB 3 ML INH (03:15)
--- NOTE | 2024-05-09 03:15 | ED.GENMED ---
History of Present Illness
General
Chief Complaint: Breathing Problem
Source: patient
Exam Limitations: none
Time Seen by Provider: 05/09/24 03:12
Nursing documentation reviewed up to this point in time: agreed with
History of Present Illness
History of Present Illness:
Patient with history of dementia, CHF, and COPD, presents to emergency department from custodial after he was noted to be more short of breath with hypoxia, when staff member was assisting him to the bathroom. Per paramedics, patient's initial
pulse ox by nursing staff was in the 50s. However, when medics arrived, patient's pulse ox on room air was noted to be 92%. Patient was placed on 2 L of oxygen on the way to the hospital. Per custodial, patient has chronic expiratory
'wheezing'. Upon arrival, patient is complaining of shortness of breath, but denies chest pain or coughing. Denies fever or chills. Denies vomiting or diarrhea. Denies abdominal pain.
Past History
Past History
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
ED Past Surgical History: Cardiac (CABG, Mitral valve repair) and Other (Patient has had angioplasty x4, Ventral hernia)
Social History
Tobacco: Smoker
Alcohol: Daily ([place] one daily)
Drug: None
Personal:
Living: custodial
Employment: Retired
Family History
Family History: Hypertension
Review of Systems
Review of Systems
Allergies reviewed?: Yes
Unable to obtain full review of systems at this time due to: dementia
All Other Systems: Not applicable
Phy Exam
Physical Exam
Physical Exam:
Physical Exam
General: no apparent distress, not acutely ill. afebrile
Head: nc/at. eomi
Neck: supple. no meningeal signs.
Heart: s1/s2 regular rate and rhythm, no murmur. equal radial pulses.
Lungs: no acute respiratory distress. mild expiratory wheezing noted bilaterally
Abdomen: normal bowel sounds. not tender.
Neuro: alert and oriented. no focal neurological deficits
Skin: no rash
Psychiatric: well kept. interactive and cooperative
Extremities: no edema. no calf tenderness.
Scores
Heart Failure Risk
Heart Failure Risk Score: Not Applicable
Course
Orders/Labs/Results
Orders:
Orders
05/09/24 03:12
Ipratropium/Albuterol Sulfate [Duoneb] 3 ml INH R NOW STA
05/09/24 03:15
COVID-19 Antigen Urgent
Source: Nasal Swab
Vital Signs
Initial and Last Documented VS:
Initial Vital Signs
Temp Pulse Resp BP Pulse Ox
97.5 F 50 24 121/85 99
05/09/24 03:08 05/09/24 03:08 05/09/24 03:08 05/09/24 03:08 05/09/24 03:08
Last Documented Vital Signs
Temp Pulse Resp BP Pulse Ox
97.5 F 50 24 121/85 99
05/09/24 03:08 05/09/24 03:08 05/09/24 03:08 05/09/24 03:08 05/09/24 03:11
MDM/Problems Addressed
MDM/Problems Addressed:
Patient's son arrived in ED shortly after the patient. Patient has DNR/DNI advance directive, as well as do not hospitalize. Son does not feel the patient would benefit from any additional evaluation and treatment, as his overall condition is
declining. He and family would like to just keep the patient comfortable and is agreeable to transferring patient back to custodial at this time.
*Critical Care Note
Total Time (30-74mins, 75-104mins- exclusive of procedures): Not Applicable
ED Attending Note
-
Portions of this chart may have been created with voice recognition software.� Occasional wrong word or��sound alike� substitutions may have occurred due to the inherent limitations of voice recognition software.
Discharge Plan
Departure
Patient Disposition: [facility]/SNF
Date of Disposition: 05/09/24
Time of Disposition: 03:26
Condition: Fair
Discharge Problem:
Dyspnea
Instructions: Shortness of Breath (Dyspnea) (DC)
Prescriptions:
No Action
tamsulosin 0.4 MG capsule
0.4 mg PO BID
atorvastatin 40 MG tablet
40 mg PO HS
acetaminophen [Tylenol Extra Strength] 500 MG tablet
1,000 mg PO HS
fluticasone propionate 1 SPRAY spray,suspension
1 spray intranasal DAILY
duloxetine 20 mg Capsule, Delayed Rel Sprinkle
20 mg PO DAILY
diltiazem HCl 360 mg Capsule,Extended Release 24 Hr
360 mg PO DAILY
magnesium hydroxide [Milk of Magnesia] 400 mg/5 mL Suspension
30 ml PO DAILYPRN PRN (Reason: constipation)
nystatin [Nystop] 100,000 unit/gram Powder
1 applic TOPICAL BIDPRN PRN (Reason: rash)
CertaVite Senior 0.4 mg-300 mcg- 250 mcg Tablet
1 tab PO DAILY
omeprazole 20 mg Tablet,Delayed Release (Dr/Ec)
20 mg PO DAILY
propylene glycol-glycerin 0.6-0.6 % Dropperette
1 drp ophthalmic (eye) DAILY
Patient Comments:
05/06/24: both eyes
Xarelto 20 mg Tablet
20 mg PO HS
Activity Restrictions/Additional Instructions:
As discussed, you are being discharged back to custodial for continual care.
Interventions
Interventions:
*Risk Screen - Suicide Last Done: 05/09/24 03:08
*General Assessment Last Done: 05/09/24 03:08
*Neglect/Abuse Screening Last Done: 05/09/24 03:08
*ED COVID-19 Vaccine History Last Done: 05/09/24 03:08
*Nursing Disposition Last Done: 05/09/24 04:35
ED- Cardiac Assessment Last Done: 05/09/24 03:11
ED- Pulmonary Assessment Last Done: 05/09/24 03:11
Discharge Date and Time
Discharge Date/Time: 05/09/24 04:36
Print Language: SWEDISH
[2024-05-09 03:41] LABS: COVID-19 Antigen Negative (Negative)
== END 2024-05-09 04:36 ==
LOC: EMR 03:06
PROVIDERS: EMERGENCY PHYSICIAN Emergency Medicine; FAMILY PHYSICIAN Internal Medicine
DX: R06.00 Dyspnea, unspecified (principal); F03.90 Unspecified dementia, unspecified severity, without behavioral disturbance, psychotic disturbance, mood disturbance, and anxiety; I13.0 Hypertensive heart and chronic kidney disease with heart failure and stage 1 through stage 4 chronic kidney disease, or unspecified chronic kidney disease; I50.9 Heart failure, unspecified; N18.9 Chronic kidney disease, unspecified; I48.20 Chronic atrial fibrillation, unspecified; E78.00 Pure hypercholesterolemia, unspecified; K21.9 Gastro-esophageal reflux disease without esophagitis; J44.9 Chronic obstructive pulmonary disease, unspecified; M10.9 Gout, unspecified; M19.90 Unspecified osteoarthritis, unspecified site; F17.200 Nicotine dependence, unspecified, uncomplicated; Z11.52 Encounter for screening for COVID-19; I25.2 Old myocardial infarction; Z95.1 Presence of aortocoronary bypass graft; Z86.73 Personal history of transient ischemic attack (TIA), and cerebral infarction without residual deficits
CPT/HCPCS: 99283; 94640; 87811